=== PATIENT | female | born 1980 | race Caucasian/White ===

== ENCOUNTER 2017-03-31 10:32 | Emergency (ER) | payer MEDICAID ==
[~2017-03-31] VITALS: Ht 160 cm; Wt 55.1 kg
[~2017-03-31 10:32] MED LIST: IRON65 M2 PO; PRENATAL VITAMI1 T10 PO
[2017-03-31 10:54] VITALS: BP 114/69
--- NOTE | 2017-03-31 11:30 | NUR ---
Patient to bed 07.
--- NOTE | 2017-03-31 11:36 | NUR ---
Dr. Lovelace evaluating patient at bedside.
[2017-03-31] MEDS ORDERED: NACL 0.9% 1,000 ML IV SCH (11:37)
[2017-03-31] MEDS ORDERED: ONDANSETRON 4 MG/2 ML VIAL IVP ONE (11:40)
--- NOTE | 2017-03-31 12:09 | NUR ---
PATIENT PRESENTS TO ED WITH C/O FLANK PAIN RADIATING TO RIGHT LOWER ABDOMEN X4 DAYS WITH NAUSEA/VOMITING;DYSURIA, NO VAG BLEEDING;G4 P 2 A 1 ; 17WKS IUP FOLLOWED BY DR. ARGUELLO;HX-KIDNEY STONE;SKIN IS PINK/WARM/DRY; AAOX4 WITH EVEN AND STEADY GAIT; LUNGS CLEAR BL; HR EVEN AND REGULAR; PT DENIES ANY FEVER, CP, SOB, OR COUGH AT THIS TIME; PATIENT STATES PAIN OF 9/10 AT THIS TIME;PATIENT POSITIONED FOR COMFORT; HOB ELEVATED; BEDRAILS UP X2; BED DOWN. ALL MONITORS IN PLACED.
[2017-03-31] MEDS ORDERED: MORPHINE SULFATE 4 MG/ML SYR IVP ONE (13:00)
[2017-03-31] MEDS ORDERED: cefTRIAXone 1,000 MG VIAL ONE (13:12)
--- NOTE | 2017-03-31 13:32 | NUR ---
PT RESTING ONJ BED;NO ACUTE DISTRESS NOTED;WILL CONTINUE TO MONITOR PT.
--- NOTE | 2017-03-31 14:16 | NUR ---
Patient discharged with v/s stable. Written and verbal after care instructions given and explained. Patient alert, oriented and verbalized understanding of instructions. Ambulatory with steady gait. All questions addressed prior to discharge. ID band removed. Patient advised to follow up with PMD. Rx of TYLENOL AND NITROFURANTOIN given. Patient educated on indication of medication including possible reaction and side effects. Opportunity to ask questions provided and answered.
[2017-03-31 14:19] VITALS: BP 139/62
[2017-04-15] MEDS ORDERED: MEROPENEM1 GM IV (08:47)
[2017-04-15] MEDS ORDERED: PYRIDOXINE HCL50 M1 PO (16:36)
[2017-04-15] MEDS ORDERED: CULTURELLE10 Billion PO (16:36)
[2017-04-16] MEDS ORDERED: DICLEGIS 10 MG-1 TCP PO (08:29)
[2017-04-16] MEDS ORDERED: Q-PAP500 MG PO (10:52)
== END 2017-03-31 14:16 | disposition home or self-care (01) ==
LOC: MED 10:32
DX: O23.12 Infections of bladder in pregnancy, second trimester (principal); R10.2 Pelvic and perineal pain; Z3A.16 16 weeks gestation of pregnancy
CPT/HCPCS: 36415; 80053; 81001; 81025; 82150; 83690; 84702; 85025; 87086; 96361; 96365; 96375; 99284; J0696; J2270; J2405; J7030; J7060

== ENCOUNTER 2017-04-11 17:12 | Inpatient (IN) | payer MEDICAID ==
[~2017-04-11] VITALS: Ht 157.5 cm; Wt 55.3 kg
[~2017-04-11 17:12] MED LIST changes: -IRON65 M2 PO; +IRON65TA3 PO; +PREN-385 PO; -PRENATAL VITAMI1 T10 PO
[2017-04-11 17:23] VITALS: BP 103/61
[2017-04-11 18:02] LABS: BASOPHILS # (AUTO) 0.1 K/uL (0.00-0.22); BASOPHILS % (AUTO) 1.2 % (0.0-2.0); EOSINOPHILS % (AUTO) 0.7 % (0.0-4.0); HEMATOCRIT 31.5 % (36-48); HEMOGLOBIN 10.4 g/dL (12.0-16.0); LYMPHOCYTES # (AUTO) 1.5 K/uL (2.5-16.5); LYMPHOCYTES % (AUTO) 23.5 % (20.5-51.1); MEAN CORPUSCULAR HEMOGLOBIN 30 pg (27-31); MEAN CORPUSCULAR HGB CONC 33 g/dL (33-37); MEAN CORPUSCULAR VOLUME 91 fL (80-94); MONOCYTES # (AUTO) 0.4 K/uL (0.8-1.0); MONOCYTES % (AUTO) 6.4 % (1.7-9.3); NEUTROPHILS # (AUTO) 4.6 K/uL (1.8-7.7); NEUTROPHILS % (AUTO) 68.2 % (42.2-75.2); PLATELET COUNT (AUTO) 253 K/uL (140-450); RED BLOOD CELL COUNT(AUTO) 3.44 MIL/uL (4.20-5.40); RED CELL DISTRIBUTION WIDTH 15.4 % (11.6-13.7); WHITE BLOOD COUNT (AUTO) 6.6 K/uL (4.8-10.8)
[2017-04-11 18:12] LABS: ANION GAP 12.8 (8-16); CALCIUM 8.8 mg/dL (8.5-10.1); CARBON DIOXIDE 23.7 mmol/L (21-32); CREATININE 0.6 mg/dL (0.6-1.3); POTASSIUM 3.5 mmol/L (3.5-5.1)
[2017-04-11 18:18] LABS: ALBUMIN 3.1 g/dL (3.4-5.0); TOTAL BILIRUBIN 0.4 mg/dL (0.0-1.0); TOTAL PROTEIN, SERUM 7.2 g/dL (6.4-8.2)
[2017-04-11 18:22] LABS: APPEARANCE,URINE HAZY (CLEAR); BILIRUBIN,URINE NEGATIVE (NEGATIVE); BLOOD, URINE 3+ (NEGATIVE); LEUKOCYTE ESTERASE ,URINE 3+ (NEGATIVE); NITRITE, URINE NEGATIVE (NEGATIVE); PH,URINE 7.5 (5.0-9.0); PROTEIN,URINE 1+ (NEGATIVE); UGLUCOSE NEGATIVE (NEGATIVE); UROBILINOGEN,URINE 0.2 EU/dL (0.2 - 1)
[2017-04-11 18:26] LABS: COLOR,URINE YELLOW (YELLOW)
[2017-04-11 18:28] LABS: BACTERIA,URINE 2+ /HPF (None Seen); WBC,URINE 60-80 /HPF (0-5)
--- NOTE | 2017-04-11 18:40 | NUR ---
PT TAKEN TO BED 3
--- NOTE | 2017-04-11 18:45 | NUR ---
PATIENT PRESENTS TO ED WITH SUPRAPUBIC PAIN RADIATING TO LEFT FLANK . PT STATES WAS SEEN AND TREATED FOR UTI X2 WK AGO WITH MILD NAUSEA SKIN IS PINK/WARM/DRY; AAOX4 WITH EVEN AND STEADY GAIT; LUNGS CLEAR BL; HR EVEN AND REGULAR; PT DENIES ANY FEVER, CP, SOB, OR COUGH AT THIS TIME; PATIENT STATES PAIN OF 7/10 AT THIS TIME; VSS; PATIENT POSITIONED FOR COMFORT; HOB ELEVATED; BEDRAILS UP X2; BED DOWN. ER MD MADE AWARE OF PT STATUS.
--- NOTE | 2017-04-11 18:49 | NUR ---
Dr. Cortez evaluating patient at bedside.
[2017-04-11] MEDS ORDERED: cefTRIAXone 1,000 MG VIAL ONE (18:59)
[2017-04-11] MEDS ORDERED: NACL 0.9% 1,000 ML IV ONE (19:15)
[2017-04-11] MEDS ORDERED: ACETAMINOPHEN 325 MG TAB PO PRN (19:45)
--- NOTE | 2017-04-11 19:57 | NUR ---
Patient will be admitted to care of DR JON/DR Breana OLSON. Admited to TELE 106B. Will go to room 106B. Belongings list completed. Report to KELVIN ROSS
--- NOTE | 2017-04-11 20:15 | NUR ---
Admitted from E. with chief complaint of ABDOMINAL PAIN. A 36 y/o, Female, Appropriate. ALERT AWAKE ORIENTED X4. INITIAL ASSESSMENT DONE. NO S/S OF RESPIRATORY DISTRESS OR SOB NOTED. C/O ABDOMINAL PAIN SCALING 10/10. WILL GIVE PRN MEDICATION FOR ABDOMINAL PAIN ORDERED. PT IS 18 WEEK (=4, PARA=2, =1). SKIN IS INTACT CLEAN DRY AND WARM TO TOUCH. PLAN OF CARE REVIEWED TO PT AND FAMILY AT BEDSIDE AND VERBALIZED UNDERSTANDING. oriented to call light, bed, phone,television, bathroom, smoking policy, visiting hours, procedures, ID bracelet on. Belongings list checked. CALL LIGHT WITHIN REACH. WILL CONTINUE TO MONITOR.
[2017-04-11] MEDS: NACL 0.9% 1,000 ML IV SCH (20:19)
[2017-04-11 20:35] LABS: FREE T4 (FREE THYROXINE) 0.82 ng/dL (0.76-1.46); THYROID STIMULATING HORMONE 1.46 uIU/mL (0.34-3.76)
[2017-04-11] MEDS ORDERED: ACETAMINOPHEN EXTRA STRENGTH 500 MG TAB PO PRN (21:45)
--- NOTE | 2017-04-11 23:40 | NUR ---
DR. Velvet OLSON CAME TO SEE PT AND NOTIFIED THAT PT IS HAVING SEVERE ABDOMINAL PAIN AND TYLENOL PO IS NOT EFFECTIVE AND NEW ORDERS WERE GIVEN (PLS. SEE CPOE). NEW ORDERS NOTED AND CARRIED OUT. WILL CONTINUE TO MONITOR.
--- NOTE | 2017-04-11 23:55 | NUR ---
CALLED L&D AND SPOKE TO IZAIAH AND NOTIFIED THAT THERE'S AN ORDER TO CHECK PATIENT'S FATAL HEART TONE TWICE A DAY AND VERBALIZED UNDERSTANDING. WILL CONTINUE TO MONITOR
[2017-04-12] VITALS: BP 115/67
--- NOTE | 2017-04-12 00:15 | NUR ---
QIB=[id number] CHECKED BY IZAIAH ROSS FROM L&D AT BEDSIDE AND PT TOLERATED WELL. WILL CONTINUE TO MONITOR.
[2017-04-12] MEDS: MORPHINE SULFATE 2 MG/ML SYR IVP PRN ×5 (00:20→20:16)
--- NOTE | 2017-04-12 00:50 | NUR ---
PT IS SLEEPING RIGHT NOW BUT EASILY AROUSABLE. NO S/S OF ANY DISCOMFORT AT THIS TIME. ALL NEEDS ARE ATTENDED. CALL LIGHT WITHIN REACH. WILL CONTINUE TO MONITOR.
[2017-04-12 04:00] VITALS: BP 116/68
--- NOTE | 2017-04-12 05:45 | NUR ---
AM CARE RENDERED. BED LINEN CHANGED. INSTRUCTED PT TO REPOSITION. KEPT CLEAN AND DRY. CALL LIGHT WITHIN REACH. WILL CONTINUE TO MONITOR.
--- NOTE | 2017-04-12 07:20 | NUR ---
RECEIVED PATIENT REPORT AT BEDSIDE. PATIENT AWAKE, ALERT, ORIENTED AND AMBULATORY. NO S/S OF DISTRESS NOTED. PATIENT C/O OF 10/10 LOWER ABD PAIN. WILL MEDICATE. IV LINE NOTED TO THE RIGHT FOREARM WITH IVF INFUSING WELL. PATIENT ON TELE MONITORING. BED LOWERED WITH CALL LIGHT WITHIN REACH. WILL CONTINUE TO MONITOR
--- NOTE | 2017-04-12 07:21 | NUR ---
PT HAS NO S/S OF ANY DISCOMFORT. PLAN OF CARE ENDORSED TO BRENDA ROSS AT BEDSIDE FOR CONTINUITY OF CARE.
[2017-04-12 08:00] VITALS: BP 109/59
[2017-04-12] MEDS: NACL 0.9% 1,000 ML IV SCH ×2 (08:15→12:45)
[2017-04-12] MEDS: LACTOBACILLUS RHAMNOSUS GG 1 EACH CAP PO SCH (08:21)
--- NOTE | 2017-04-12 08:48 | NUR ---
PATIENT HAS BEEN SCREENED AND CATEGORIZED HIGH NUTRITION RISK. PATIENT WILL BE SEEN WITHIN 1-2 DAYS OF ADMISSION. 04/12/17-04/13/[address]
[2017-04-12] MEDS: PYRIDOXINE 50 MG TAB PO SCH (10:03)
[2017-04-12 10:17] LABS: T4 (THYROXINE) 6.9 ug/dL (4.5 - 12.0)
--- NOTE | 2017-04-12 10:39 | NUR ---
PATIENT ASLEEP IN BED. NO S/S OF DISTRESS NOTED
--- NOTE | 2017-04-12 11:43 | NUR ---
04/12/17 RD INITIAL ASSESSMENT COMPLETED PLEASE REFER TO NUTRITION ASSESSMENT UNDER CARE ACTIVITY FOR ESTIMATED NUTRITIONAL NEEDS. 1. CONTINUE REGULAR DIET 2. ADD HEALTH SHAKE TID 3. RD TO FOLLOW-UP 2-3 DAYS; HIGH RISK VY CORTES RD
[2017-04-12 12:00] VITALS: BP 129/73
--- NOTE | 2017-04-12 12:48 | NUR ---
PATIENT SEEN BY L&D NURSES. HR 144
[2017-04-12 16:00] VITALS: BP 122/65
[2017-04-12] MEDS: diphenhydrAMINE 50 MG/ML VIAL IVP PRN ×2 (16:30→22:54)
--- NOTE | 2017-04-12 19:16 | NUR ---
PATIENT REPORT GIVEN AT BEDSIDE. PATIENT ENDORSED IN STABLE CONDITION
--- NOTE | 2017-04-12 19:17 | NUR ---
RECEIVED REPORT, ASSUMED CARE.PT AAOX4. RESPIRATION EVEN AND UNLABORED,NO SOB,NO C/O PAIN AT THIS TIME. NO S/S OF RESPIRATORY DISTRESS AT THIS TIME. IV ACCESS TO RT HAND, INTACT AND PATENT, NO S/S OF INFILTRATION. INFUSING NS @ 80ML/HR. DISCUSSED PLAN OF CARE. EDUCATION PROVIDED RE: SAFETY AND FALL PREVENTION. PT VERBALIZED UNDERSTANDING. CALL LIGHT PLACED WITHIN EASY REACH. WILL CONTINUE TO MONITOR.
[2017-04-12 20:00] VITALS: BP 132/67
--- NOTE | 2017-04-12 21:30 | NUR ---
KATERINA RN FORM L&D CAME AND SEEN THE PT. PER KATERINA, FHR 150 BPM.
--- NOTE | 2017-04-12 22:54 | NUR ---
PT C/O NAUSEA AND VOMITING. ADMINISTERED BENADRYL 25MG IV PUSH. WILL CONTINUE TO MONITOR AND REASSESS FOR EFFECTIVENESS.
--- NOTE | 2017-04-12 23:54 | NUR ---
PT SLEEPING AT THIS TIME, NO APPARENT DISTRESS. NO EPISODE OF VOMITING AT THIS TIME. WILL CONTINUE TO MONITOR.
[2017-04-13] VITALS: BP 121/67
--- NOTE | 2017-04-13 00:21 | NUR ---
PT SLEEPING AT THIS TIME WITH REGULAR BREATHING PATTERN. NO S/S OF RESPIRATORY DISTRESS. NO FACIAL GRIMACING INDICATING PAIN. WILL CONTINUE TO MONITOR.
[2017-04-13] MEDS: NACL 0.9% 1,000 ML IV SCH ×2 (00:30→21:45)
[2017-04-13] MEDS: MORPHINE SULFATE 2 MG/ML SYR IVP PRN ×2 (02:15→11:42)
[2017-04-13 04:00] VITALS: BP 108/52
--- NOTE | 2017-04-13 04:22 | NUR ---
PT AWAKE, VERBALLY RESPONSIVE WITH REGULAR BREATHING PATTERN. DENIES PAIN AT THIS TIME. NO ACUTE CHANGE IN CONDITION. WILL CONTINUE TO MONITOR.
[2017-04-13 06:43] LABS: ANION GAP 10.7 (8-16); CALCIUM 8.2 mg/dL (8.5-10.1); CARBON DIOXIDE 24.3 mmol/L (21-32); CREATININE 0.5 mg/dL (0.6-1.3)
[2017-04-13 06:46] LABS: MAGNESIUM 1.4 mg/dL (1.8-2.4); PHOSPHORUS 2.6 mg/dL (2.5-4.9)
[2017-04-13 06:50] LABS: BASOPHILS # (AUTO) 0.1 K/uL (0.00-0.22); BASOPHILS % (AUTO) 1.4 % (0.0-2.0); EOSINOPHILS # (AUTO) 0.1 K/uL (0-0.4); HEMATOCRIT 26.8 % (36-48); HEMOGLOBIN 9.2 g/dL (12.0-16.0); LYMPHOCYTES # (AUTO) 1.6 K/uL (2.5-16.5); LYMPHOCYTES % (AUTO) 31.3 % (20.5-51.1); MEAN CORPUSCULAR HEMOGLOBIN 31 pg (27-31); MEAN CORPUSCULAR HGB CONC 34 g/dL (33-37); MEAN CORPUSCULAR VOLUME 91 fL (80-94); MONOCYTES # (AUTO) 0.4 K/uL (0.8-1.0); MONOCYTES % (AUTO) 8.8 % (1.7-9.3); NEUTROPHILS # (AUTO) 2.8 K/uL (1.8-7.7); NEUTROPHILS % (AUTO) 56.5 % (42.2-75.2); PLATELET COUNT (AUTO) 198 K/uL (140-450); RED BLOOD CELL COUNT(AUTO) 2.95 MIL/uL (4.20-5.40); RED CELL DISTRIBUTION WIDTH 14.9 % (11.6-13.7)
--- NOTE | 2017-04-13 07:25 | NUR ---
PT AWAKE AND VERBALLY RESPONSIVE. DENIES PAIN AT THIS TIME. NO S/S OF RESPIRATORY DISTRESS. ENDORSED TO NEXT SHIFT FOR CONTINUITY OF CARE. PT IN STABLE CONDITION.
--- NOTE | 2017-04-13 07:26 | NUR ---
RECEIVED REPORT FROM THE CARE ASST NURSE AT BEDSIDE FOR CONTINUITY OF CARE. PT IS AWAKE AND ORIENTED. SHE DOES C/O SOME PAIN BUT REFUSED MEDS. PT HAS IV ON R HAND 20G. PT IS 18 WEEKS . HER MAG LEVEL IS 1.4 TODAY. WILL NOTIFY MD. SHE IS UNABLE TO EAT HER BREAKFAST, NAUSEATED. SHE'S BEEN GETTING BENADRYL AND IT HAS BEEN HELPING. WILL MEDICATE. WILL BE BACK TO ADMINISTER MEDS.
[2017-04-13 08:00] VITALS: BP 100/60
[2017-04-13] MEDS: PYRIDOXINE 50 MG TAB PO SCH (08:17)
[2017-04-13] MEDS: diphenhydrAMINE 50 MG/ML VIAL IVP PRN ×3 (08:17→23:28)
[2017-04-13] MEDS: LACTOBACILLUS RHAMNOSUS GG 1 EACH CAP PO SCH (08:17)
--- NOTE | 2017-04-13 08:20 | NUR ---
ADMINISTERED MORNING MEDS. PT TOLERATED WELL. WILL CONTINUE TO MONITOR PT.
[2017-04-13] MEDS ORDERED: MAG SULF 2000 MG/WATER PREMIX 100 ML IV SCH (09:00)
--- NOTE | 2017-04-13 09:22 | NUR ---
ADMINISTERED MAG RIDER 11/05. EDUCATED PT ABOUT POSSIBLE SIDE EFFECTS OF MAG. PT VERBALIZED UNDERSTANDING. WILL CONTINUE TO MONITOR PT.
--- NOTE | 2017-04-13 10:50 | NUR ---
PT RESTING COMFORTABLY. ASKED PT ABOUT PAIN. SHE SAID IT'S THERE BUT WOULD LIKE TO HOLD OFF ON THE PAIN MED. I EDUCATED PT ABOUT NOT WAITING UNTIL 10/10 BEFORE GETTING THE PAIN MED. PT VERBALIZED UNDERSTANDING. WILL CONTINUE TO MONITOR PT.
[2017-04-13 12:00] VITALS: BP 92/63
--- NOTE | 2017-04-13 12:35 | NUR ---
HEART TONE DONE, 140 BPM.
--- NOTE | 2017-04-13 13:39 | NUR ---
LAB CALLED WITH CRITICAL RESULTS. URINE- ECOLI, MDRO, ESVL. NOTIFIED DR JACINTO. HE WILL PUT IN ORDERS.
[2017-04-13] MEDS ORDERED: NITROFURANTOIN 100 MG CAP PO SCH (13:50)
--- NOTE | 2017-04-13 15:30 | NUR ---
RESTING COMFORTABLY. DENIES PAIN AT THIS TIME. DR JACINTO TOLD HER THAT SHE MAY BE STAYING ANOTHER DAY D/T A CONSULT. SHE NOTIFIED HER FAMILY. WILL CONTINUE TO MONITOR PT.
--- NOTE | 2017-04-13 15:42 | NUR ---
CHECKED ON PT. PT SLEEPING. MOM AT BEDSIDE. NO SIGNS OF DISTRESS. WILL CONTINUE TO MONITOR PT. Addendum: 04/13/17 at 1546 by Sherie Bowles RN WRONG PT.
[2017-04-13 16:00] VITALS: BP 90/55
--- NOTE | 2017-04-13 17:22 | NUR ---
ADMINISTERED BENADRYL FOR PT'S NAUSEA. PT TOLERATED WELL. DINNER TRAY AT BEDSIDE. WILL EAT LATER. WILL CONTINUE TO MONITOR PT.
--- NOTE | 2017-04-13 19:15 | NUR ---
ENDORSED PT TO THE WOODS BOSS NURSE AT BEDSIDE FOR CONTINUITY OF CARE. PT IS STABLE WITH FAMILY AT BEDSIDE.
--- NOTE | 2017-04-13 19:16 | NUR ---
RECEIVED REPORT FROM DAY RN FOR CONTINUITY OF CARE. PATIENT IS A&OX4, DISCUSSED PLAN OF CARE WITH PATIENT VERBALIZED UNDERSTANDING. SHIFT ASSESSMENT DONE, VS TAKEN, STABLE AT THIS TIME. NO S/S OF RESPIRATORY DISTRESS NOTED ON ROOM AIR. PATIENT DENIES PAIN AT THIS TIME. IV TO RT HAND PATENT AND INFUSING FLUIDS WELL. PATIENT IS , WILL FOLLOW UP WITH HEART TONES ORDERED. SAFETY/CONTACT PRECAUTIONS ENFORCED. CALL LIGHT PLACED WITHIN REACH. WILL CONTINUE TO MONITOR
[2017-04-13 20:00] VITALS: BP 130/80
[2017-04-13] MEDS: MEROPENEM 1,000 MG in NACL 0.9% 100 ML IV SCH (20:53)
[2017-04-13] MEDS ORDERED: MEROPENEM 500 MG in NACL 0.9% 50 ML IV SCH (21:00)
[2017-04-13] MEDS: HYDROcodone/APAP 5/325 MG 1 TAB TAB PO PRN (21:08)
--- NOTE | 2017-04-13 21:27 | NUR ---
DR. ADAN IN TO SEE PATIENT, PER PATIENT NEEDS TO RECEIVE IV ANTIBIOTICS FOR UP TO 2 WEEKS. NO P.O. MEDICATION AVAILABLE. PATIENT VERBALIZED UNDERSTANDING.
--- NOTE | 2017-04-13 23:45 | NUR ---
VITAL SIGNS STABLE AT THIS TIME. HEART TONE TAKEN BY L&D RN: 138-142. PATIENT C/O ITCHING, ADMINISTERED BENADRYL PER MD ORDER. CALL LIGHT WITHIN REACH, WILL CONTINUE TO MONITOR.
[2017-04-14] VITALS: BP 102/54
--- NOTE | 2017-04-14 02:00 | NUR ---
PATIENT RESTING IN BED WATCHING TV, ALL NEEDS MET. CALL LIGHT WITHIN REACH.
[2017-04-14] MEDS: HYDROcodone/APAP 5/325 MG 1 TAB TAB PO PRN ×3 (02:55→21:39)
[2017-04-14 04:00] VITALS: BP 103/61
--- NOTE | 2017-04-14 04:32 | NUR ---
VS TAKEN, STABLE. NO S/S OF RESPIRATORY DISTRESS NOTED. SAFETY MEASURES ENFORCED, CALL LIGHT WITHIN REACH.
[2017-04-14] MEDS: MEROPENEM 1,000 MG in NACL 0.9% 100 ML IV SCH ×3 (04:52→20:47)
--- NOTE | 2017-04-14 05:59 | NUR ---
PATIENT RESTING IN BED, NO S/S OF DISTRESS OR DISCOMFORT NOTED. CALL LIGHT WITHIN REACH.
[2017-04-14 06:48] LABS: BASOPHILS % (AUTO) 0.7 % (0.0-2.0); EOSINOPHILS # (AUTO) 0.2 K/uL (0-0.4); EOSINOPHILS % (AUTO) 2.6 % (0.0-4.0); HEMATOCRIT 28.8 % (36-48); HEMOGLOBIN 9.6 g/dL (12.0-16.0); LYMPHOCYTES # (AUTO) 1.4 K/uL (2.5-16.5); LYMPHOCYTES % (AUTO) 22.8 % (20.5-51.1); MEAN CORPUSCULAR HEMOGLOBIN 30 pg (27-31); MEAN CORPUSCULAR HGB CONC 33 g/dL (33-37); MEAN CORPUSCULAR VOLUME 92 fL (80-94); MONOCYTES # (AUTO) 0.5 K/uL (0.8-1.0); MONOCYTES % (AUTO) 7.6 % (1.7-9.3); NEUTROPHILS # (AUTO) 4.2 K/uL (1.8-7.7); NEUTROPHILS % (AUTO) 66.3 % (42.2-75.2); PLATELET COUNT (AUTO) 218 K/uL (140-450); RED BLOOD CELL COUNT(AUTO) 3.15 MIL/uL (4.20-5.40); WHITE BLOOD COUNT (AUTO) 6.4 K/uL (4.8-10.8)
[2017-04-14 06:49] LABS: ANION GAP 10.1 (8-16); CALCIUM 7.9 mg/dL (8.5-10.1); CARBON DIOXIDE 23.4 mmol/L (21-32); CREATININE 0.6 mg/dL (0.6-1.3); POTASSIUM 3.5 mmol/L (3.5-5.1)
[2017-04-14 06:55] LABS: MAGNESIUM 1.8 mg/dL (1.8-2.4); PHOSPHORUS 2.8 mg/dL (2.5-4.9)
--- NOTE | 2017-04-14 07:27 | NUR ---
ENDORSED PATIENT TO DAY RN FOR CONTINUITY OF CARE, PATIENT IS IN STABLE CONDITION.
--- NOTE | 2017-04-14 07:28 | NUR ---
RECEIVED REPORT FROM THE LOLLYPOP MACHINE OPERATOR NURSE AT BEDSIDE FOR CONTINUITY OF CARE. PT IS AWAKE AND ALERT. I REINTRODUCED MYSELF AND UPDATED THE BOARD. SHE IS AWARE THAT SHE IS ON A NEW ABX AND THAT DR. GONZALES STATED THAT SHE NEEDS IV ABX FOR 14 DAYS. SHE COMPLAINS OF NAUSEA AND SOME ITCHINESS. WILL BRING HER BENADRYL WITH HER MORNING MEDS.
[2017-04-14 08:00] VITALS: BP 98/71
[2017-04-14] MEDS: LACTOBACILLUS RHAMNOSUS GG 1 EACH CAP PO SCH (08:14)
[2017-04-14] MEDS: diphenhydrAMINE 50 MG/ML VIAL IVP PRN ×3 (08:14→21:39)
[2017-04-14] MEDS: PYRIDOXINE 50 MG TAB PO SCH (08:14)
--- NOTE | 2017-04-14 08:15 | NUR ---
ADMINISTERED MORNING MEDS, INCLUDING BENADRYL. PT TOLERATED WELL. WILL CONTINUE TO MONITOR PT.
--- NOTE | 2017-04-14 09:30 | NUR ---
PICKED UP PT BREAKFAST TRAY. ATE 90%.
--- NOTE | 2017-04-14 09:34 | NUR ---
COMPLAINED OF PAIN. ADMINISTERED NORCO REQUESTED. PT TOLERATED WELL. WILL CONTINUE TO MONITOR PT.
[2017-04-14 12:00] VITALS: BP 109/68
--- NOTE | 2017-04-14 12:16 | NUR ---
PT WOULD LIKE TO TAKE A SHOWER. WAITING ON DR JACINTO TO GIVE ORDERS. PT EATING LUNCH. OB NURSE HERE. HR IS 140. WANTED SOME ICE IN HER WATER. WILL CONTINUE TO MONITOR PT.
--- NOTE | 2017-04-14 12:55 | NUR ---
PT TAKING SHOWER. WRAPPED PT ARM WITH PLASTIC TO KEEK IV DRY. SUPPLIED PT WITH TOWELS AND SOAP. CHANGED ALL LINENS ON BED. WILL CONTINUE TO MONITOR PT.
[2017-04-14] MEDS: NACL 0.9% 1,000 ML IV SCH ×2 (13:08→21:53)
--- NOTE | 2017-04-14 14:05 | NUR ---
PT IS RESTING AFTER HER SHOWER. SPOUSE AT BEDSIDE. SOME NAUSEA. WOULD LIKE HER BENADRYL. WILL ADMINISTER.
[2017-04-14 16:00] VITALS: BP 107/65
--- NOTE | 2017-04-14 17:00 | NUR ---
FAMILY CAME FOR A VISIT. PT IS VISITING WITH THEM. NO SIGNS OF DISTRESS. DENIES PAIN OR NAUSEA. WILL CONTINUE TO MONITOR PT.
--- NOTE | 2017-04-14 19:20 | NUR ---
ENDORSED PT TO THE NIGHTSHIFT NURSE AT BEDSIDE FOR CONTINUITY OF CARE. PT IS IN STABLE CONDITION.
--- NOTE | 2017-04-14 19:21 | NUR ---
RECEIVED REPORT FROM DAY RN FOR CONTINUITY OF CARE. PATIENT IS A&OX4, DISCUSSED PLAN OF CARE WITH PATIENT AND FAMILY MEMBER AT BEDSIDE VERBALIZED UNDERSTANDING. SHIFT ASSESSMENT DONE, VS TAKEN, STABLE. NO S/S OF RESPIRATORY DISTRESS NOTED ON ROOM AIR. PATIENT DENIES PAIN AT THIS TIME. IV TO RT HAND PATENT AND INFUSING FLUIDS WELL. SAFETY/CONTACT PRECAUTIONS ENFORCED. CALL LIGHT PLACED WITHIN REACH. WILL CONTINUE TO MONITOR
[2017-04-14 20:00] VITALS: BP 104/68
--- NOTE | 2017-04-14 20:37 | NUR ---
DUE ANTIBIOTICS ADMINISTERED, TOLERATED WELL. EDUCATED PATIENT ON USE OF CONTACT PRECAUTIONS FOR VISITORS, VERBALIZED UNDERSTANDING. CALL LIGHT WITHIN REACH. WILL CONTINUE TO MONITOR.
--- NOTE | 2017-04-14 21:39 | NUR ---
HEART RATE 137-142 PER L&D NURSE. PATIENT C/O PAIN AND NAUSEA, MEDICATED PER MD ORDER. VITAL SIGNS STABLE. WILL CONTINUE TO MONITOR.
[2017-04-15] VITALS: BP 97/56
--- NOTE | 2017-04-15 00:25 | NUR ---
VITAL SIGNS STABLE. ALL NEEDS MET AT THIS TIME. PATIENT RESTING IN BED NO S/S OF DISTRESS OR DISCOMFORT NOTED. WILL CONTINUE TO MONITOR.
--- NOTE | 2017-04-15 02:20 | NUR ---
PATIENT SLEEPING AT THIS TIME, NO S/S OF DISTRESS OR DISCOMFORT NOTED. CALL LIGHT WITHIN REACH.
--- NOTE | 2017-04-15 04:07 | NUR ---
PATIENT RESTING IN BED, NO S/S OF DISTRESS OR DISCOMFORT NOTED. CALL LIGHT WITHIN REACH.
[2017-04-15] MEDS: MEROPENEM 1,000 MG in NACL 0.9% 100 ML IV SCH ×3 (04:51→22:19)
--- NOTE | 2017-04-15 06:00 | NUR ---
PATIENT IS SLEEPING AT THIS TIME, NO S/S OF DISTRESS OR DISCOMFORT NOTED. CALL LIGHT WITHIN REACH.
[2017-04-15] MEDS: diphenhydrAMINE 50 MG/ML VIAL IVP PRN ×3 (07:05→19:50)
[2017-04-15] MEDS: HYDROcodone/APAP 5/325 MG 1 TAB TAB PO PRN ×3 (07:05→21:50)
--- NOTE | 2017-04-15 07:20 | NUR ---
ENDORSED PATIENT TO DAY RN FOR CONTINUITY OF CARE, PATIENT IS IN STABLE CONDITION.
--- NOTE | 2017-04-15 07:21 | NUR ---
RECEIVED REPORT FROM VARIETY PERFORMER NURSE AT BEDSIDE. PT IS ALERT AWAKE AND ORIENTED. UPDATED THE BOARD AND INTRODUCED MYSELF. PT DENIES PAIN OR DISCOMFORT AT THIS TIME. IV ON R HAND 20 G RUNNING @ 80ML/HR. WILL CALL L&D NURSE TO CHECK ON FETUS. CALL LIGHT WITHIN REACH. WILL CONTINUE TO MONITOR.
[2017-04-15 08:00] VITALS: BP 95/59
[2017-04-15] MEDS: PYRIDOXINE 50 MG TAB PO SCH (08:27)
[2017-04-15] MEDS: LACTOBACILLUS RHAMNOSUS GG 1 EACH CAP PO SCH (08:27)
[2017-04-15] MEDS ORDERED: MERO1PDS2 IV (08:47)
--- NOTE | 2017-04-15 08:50 | NUR ---
SPOKE TO DR REGARDING PT HAVING NO BOWEL MOVEMENT FOR [address] WILL PUT IN ORDER.
[2017-04-15 08:55] LABS: BASOPHILS # (AUTO) 0.1 K/uL (0.00-0.22); BASOPHILS % (AUTO) 0.7 % (0.0-2.0); EOSINOPHILS # (AUTO) 0.1 K/uL (0-0.4); EOSINOPHILS % (AUTO) 1.8 % (0.0-4.0); HEMATOCRIT 31.2 % (36-48); HEMOGLOBIN 10.1 g/dL (12.0-16.0); LYMPHOCYTES # (AUTO) 1.5 K/uL (2.5-16.5); MEAN CORPUSCULAR HEMOGLOBIN 30 pg (27-31); MEAN CORPUSCULAR HGB CONC 33 g/dL (33-37); MEAN CORPUSCULAR VOLUME 93 fL (80-94); MONOCYTES # (AUTO) 0.5 K/uL (0.8-1.0); MONOCYTES % (AUTO) 5.9 % (1.7-9.3); NEUTROPHILS % (AUTO) 73.6 % (42.2-75.2); PLATELET COUNT (AUTO) 246 K/uL (140-450); RED BLOOD CELL COUNT(AUTO) 3.35 MIL/uL (4.20-5.40); RED CELL DISTRIBUTION WIDTH 15.3 % (11.6-13.7); WHITE BLOOD COUNT (AUTO) 8.2 K/uL (4.8-10.8)
[2017-04-15 09:22] LABS: ANION GAP 11.7 (8-16); CALCIUM 8.5 mg/dL (8.5-10.1); CARBON DIOXIDE 24.3 mmol/L (21-32); CREATININE 0.6 mg/dL (0.6-1.3)
[2017-04-15 09:26] LABS: MAGNESIUM 1.6 mg/dL (1.8-2.4); PHOSPHORUS 2.5 mg/dL (2.5-4.9)
[2017-04-15 09:29] VITALS: BP 95/59
--- NOTE | 2017-04-15 10:05 | NUR ---
UPDATED PT ON PLAN OF CARE. PT VERBALIZED UNDERSTANDING. L&D NURSE CHECKED HEART RATE, 136.
[2017-04-15] MEDS ORDERED: MAG SULF 2000 MG/WATER PREMIX 50 ML IV SCH (11:00)
[2017-04-15] MEDS: NACL 0.9% 1,000 ML IV SCH ×2 (11:15→22:42)
--- NOTE | 2017-04-15 11:41 | NUR ---
04/15/17 RD FOLLOW-UP ASSESSMENT COMPLETED PLEASE REFER TO NUTRITION ASSESSMENT UNDER CARE ACTIVITY FOR ESTIMATED NUTRITIONAL NEEDS. 1. CONTINUE REGULAR DIET 2. D/C HEALTH SHAKE TID 3. RD TO FOLLOW-UP 3-5 DAYS; MODERATE RISK VY CORTES, VICENTE
--- NOTE | 2017-04-15 12:06 | NUR ---
SS NOTE: PER MISSY FROM [facility] ([phone]), RESTRICTED MEDI-KRYSTAL COVERS 10 DAYS AND THE COST FOR THE ADDITONAL TWO DAYS OF IV MEDICATION, SUPPLIES AND DELIVERY IS $200. I SPOKE WITH PT REGARDING THE ABOVE INFORMATION. SHE STATED THAT SHE IS IN AGREEMENT WITH PAYING FOR HER MEDICATION. I ALSO INFORMED HER THAT WE ARE WORKING ON A HOME HEALTH THAT IS WILLING TO TEACH HER HOW TO ADMINISTER HER MEDICATION, PT VERBALIZED UNDERSTANDING AND REPORTED THAT HER NEIGHBOR CAN ALSO LEARN WITH HER IF SHE NEEDS ASSISTANCE. Addendum: 04/16/17 at 0949 by Heidi Liao SS PT INFORMED ME THAT HER HOME WILL BE GETTING FUMIGATED SO SHE WILL BE STAYING WITH HER SISTER ([id number] [place] [id number]).
--- NOTE | 2017-04-15 12:35 | NUR ---
SS NOTE: PER MISSY FROM [facility] ([phone]), HE SPOKE WITH PT AND THEY WILL DELIVER PT'S MEDICATIONS AFTER 1700 TODAY. PER LINDA FROM [address], THEIR [place] NURSE [place] SO THEY ARE UNABLE TO ACCEPT PT.
--- NOTE | 2017-04-15 13:30 | NUR ---
ADMINISTERED MEDS FOR PAIN AND NAUSEA. PT TOLERATED WELL. WILL CONTINUE TO MONITOR.
--- NOTE | 2017-04-15 15:02 | NUR ---
SS NOTE: PER CARY FROM [facility], MEDI-KRYSTAL RESTRICTED DOES NOT COVER HOME HEALTH SERVICES AND THEY ARE UNABLE TO ACCEPT PT PER CONCHIS FROM [facility], THEY DO NOT ACCEPT MEDI-KRYSTAL RESTRICTED I SPOKE WITH PT REGARDING THE CHALLENGES OF OBTAINING HOME HEALTH NURSING DUE TO HER INSURANCE. I INFORMED HER THAT THE HOSPITAL CAN PROVIDE TEACHING FOR PT TODAY AND TOMORROW AFTER SHE RECEIVES HER PICC LINE IF HOME HEALTH NURSING IS NOT AVAILABLE. SHE STATED THAT SHE IS IN AGREEMENT WITH THAT PLAN.
--- NOTE | 2017-04-15 15:35 | NUR ---
PT SIGNED CONSENT FOR PICC LINE. VERBALIZED UNDERSTANDING.
--- NOTE | 2017-04-15 15:40 | NUR ---
PROVIDED PT PRUNE JUICE FOR CONSTIPATION.
--- NOTE | 2017-04-15 15:56 | NUR ---
SS NOTE: PER JENN FROM [facility] ([phone]), THEY ARE ABLE TO DO ONE PRO-NIK VISIT TO TEACH PT AT HOME. I SPOKE WITH MISSY FROM [facility] AND MADE HIM AWARE OF THE ABOVE INFORMATION. HE STATED THAT HE WILL CONTACT PT TO SET UP A DELIVERY TIME. I SPOKE WITH PT AND MADE HER AWARE OF THE ABOVE INFORMATION. PT STATED THAT SHE IS IN AGREEMENT WITH THE D/C PLAN.
[2017-04-15 16:00] VITALS: BP 106/72
--- NOTE | 2017-04-15 16:00 | NUR ---
JALEN BOLES. PT HAS NO COMPLAINTS AT THIS TIME. FRIEND VISITING AT BEDSIDE. CALL LIGHT WITHIN REACH.
[2017-04-15] MEDS ORDERED: PYRI50TA25 PO (16:36)
[2017-04-15] MEDS ORDERED: LACT10CA PO (16:36)
--- NOTE | 2017-04-15 16:40 | NUR ---
OBTAINED PT'S PREFERRED PHARMACY FOR
[2017-04-15 17:39] LABS: PARTIAL THROMBOPLASTIN TIME 23.4 secs (22-35.6); PROTHROMBIN TIME 9.7 secs (10.8-13.4)
--- NOTE | 2017-04-15 18:00 | NUR ---
FAMILY VISITING AT BEDSIDE. PT HAS NO COMPLAINTS AT THIS TIME. WILL CONTINUE TO MONITOR.
--- NOTE | 2017-04-15 19:10 | NUR ---
ENDORSED CARE OF PT TO HEALTH SCREENER NURSE. PT IN STABLE CONDITION.
--- NOTE | 2017-04-15 19:22 | NUR ---
RECEIVED REPORT FROM DAY RN FOR CONTINUITY OF CARE. PATIENT IS A&OX4, DISCUSSED PLAN OF CARE WITH PATIENT AND FAMILY MEMBER AT BEDSIDE VERBALIZED UNDERSTANDING. SHIFT ASSESSMENT DONE, VS TAKEN, STABLE AT THIS TIME. NO S/S OF RESPIRATORY DISTRESS NOTED ON ROOM AIR. PATIENT DENIES PAIN AT THIS TIME. IV TO RT HAND 20 GAUGE PATENT AND INFUSING FLUIDS WELL. SAFETY/CONTACT PRECAUTIONS ENFORCED. CALL LIGHT PLACED WITHIN REACH. WILL CONTINUE TO MONITOR. WILL FOLLOW UP WITH PICC LINE NURSE REGARDING INSERTION TIME.
--- NOTE | 2017-04-15 19:50 | NUR ---
PT C/O NAUSEA AND ITCHING, MEDICATED PER MD ORDER. CALL LIGHT WITHIN REACH.
--- NOTE | 2017-04-15 20:00 | NUR ---
INFORMED VIDEO RENTAL CLERK THAT PICC LINE NURSE WAS SUPPOSED TO BE HERE AT 6 AND WAS STILL NOT HERE. PER VIDEO RENTAL CLERK WILL LEAVE A MESSAGE WITH PICC LINE NURSE.
--- NOTE | 2017-04-15 22:00 | NUR ---
SPOKE TO PICC LINE NURSE YUMIKO, HE WILL NOT BE ABLE TO BE HERE UNTIL THE MORNING AROUND 6 AM.
--- NOTE | 2017-04-15 22:08 | NUR ---
SPOKE TO DR. GUAJARDO, INFORMED HIM THAT PICC LINE MAY NOT GET DONE UNTIL AM, AND DISCHARGE ORDER CURRENTLY IN PLACE, PER MD OK FOR PATIENT TO STAY AND DISCHARGE IN AM.
--- NOTE | 2017-04-15 22:20 | NUR ---
SPOKE TO MODESTO FROM CAN LINE EXAMINER, INFORMED HER THAT PATIENT PICC LINE WILL NOT BE INSERTED UNTIL LATER AND THAT PATIENT WILL BE STAYING OVERNIGHT AND THAT IT IS OK WITH MD. PER MODESTO IMPLEMENT PATIENT TEACHING FOR IV ANTIBIOTICS AND HOME HEALTH.
--- NOTE | 2017-04-15 22:45 | NUR ---
PICC LINE NURSE YUMIKO CALLED AND STATES HE WILL NOW BE HERE AT 2330. INFORMED CHARGE NURSE.
--- NOTE | 2017-04-15 23:36 | NUR ---
PIC LINE NURSE YUMIKO Herrera AT BEDSIDE TO PERFORM PROCEDURE TIME OUT PERFORMED. PATIENT IN STABLE CONDITION.
[2017-04-16] VITALS: BP 104/57
--- NOTE | 2017-04-16 00:10 | NUR ---
PICC LINE PROCEDURE FINISHED. CXR NEEDED PER PICC LINE PROTOCOL, PATIENT CONCERNED ABOUT X-RAYS AND AND WOULD LIKE TO SPEAK TO THE DOCTOR. PAGED DR. GUAJARDO, INFORMED MD. PER MD MINIMAL HARM WITH USE OF LEAD APRON. PATIENT SIGNED CONSENT AND VERBALIZED UNDERSTANDING.
[2017-04-16] MEDS: diphenhydrAMINE 50 MG/ML VIAL IVP PRN ×2 (01:47→08:03)
--- NOTE | 2017-04-16 01:47 | NUR ---
PT C/O NAUSEA, MEDICATIONS ADMINISTERED PER MD ORDER, TOLERATED WELL.
--- NOTE | 2017-04-16 04:38 | NUR ---
HEART TONES 143, TAKEN BY L&D NURSE MALIKA. PATIENT RESTING IN BED, NO S/S OF DISTRESS OR DISCOMFORT NOTED. CALL LIGHT WITHIN REACH.
--- NOTE | 2017-04-16 06:00 | NUR ---
PROVIDED EDUCATION SESSION FOR IV ANTIBIOTICS THROUGH PICC LINE, PATIENT ABLE TO RETURN DEMO AND VERBALIZED UNDERSTANDING. CALL LIGHT IN REACH, WILL CONTINUE TO MONITOR.
[2017-04-16] MEDS: MEROPENEM 1,000 MG in NACL 0.9% 100 ML IV SCH (06:05)
[2017-04-16 06:26] VITALS: BP 104/57
[2017-04-16] MEDS: HYDROcodone/APAP 5/325 MG 1 TAB TAB PO PRN (07:06)
--- NOTE | 2017-04-16 07:20 | NUR ---
RECEIVED PATIENT REPORT AT BEDSIDE. PATIENT AWAKE, ALERT AND ORIENTED. NO S/S OF DISTRESS NOTED. NO C/O PAIN AT THIS TIME. PATIENT C/O NAUSEA. WILL MEDICATE. PICC LINE NOTED TO THE LEFT UPPER ARM. BED LOWERED WITH CALL LIGHT WITHIN REACH. WILL CONTINUE TO MONITOR
--- NOTE | 2017-04-16 07:20 | NUR ---
ENDORSED PATIENT TO DAY RN FOR CONTINUITY OF CARE, PATIENT IS IN STABLE CONDITION.
[2017-04-16 08:00] VITALS: BP 100/62
[2017-04-16] MEDS ORDERED: LACTULOSE 20 GM/30 ML UDC PO SCH (08:13)
[2017-04-16] MEDS ORDERED: DOXY1TCP PO (08:29)
--- NOTE | 2017-04-16 08:30 | NUR ---
SPOKE WITH DR JON REGARDING PATIENT'S DISCHARGE ORDER. STATES THAT THEY ARE STILL WAITING FOR THE HOME HEALTH CONFIRMATION. ALSO NOTIFIED ABOUT THE PATIENT'S REQUEST TO HAVE PAIN MEDICATION IN HER DISCHARGE PRESCRIPTION. TO PUT ORDERS
[2017-04-16] MEDS: LACTOBACILLUS RHAMNOSUS GG 1 EACH CAP PO SCH (09:33)
[2017-04-16] MEDS: PYRIDOXINE 50 MG TAB PO SCH (09:33)
[2017-04-16] MEDS ORDERED: [UNRECOGNIZED DRUG - CODE] PO (10:52)
[2017-04-16] MEDS: NACL 0.9% 1,000 ML IV SCH (12:15)
--- NOTE | 2017-04-16 12:20 | NUR ---
PATIENT DISCHARGED TO HOME. DISCHARGE INSTRUCTIONS AND DISCHARGE PRESCRIPTIONS GIVEN. PATIENT VERBALIZED UNDERSTANDING. PER PT, ABX WAS DELIVERED TO HER HOUSE YESTERDAY AND SHE WILL GIVE THE HOME HEALTH NURSE A CALL WHEN SHE GETS HOME. PICC LINE LEFT INTACT. PATIENT GIVEN EDUCATION ON PICC LINE CARE AND WAS PROVIDED WITH SUPPLIES FOR DRESSING CHANGE. PATIENT VERBALIZED UNDERSTANDING. PERIPHERAL IV LINE TO THE RIGHT FOREARM DISCONTINUED. PATIENT LEFT WITH ALL HER BELONGINGS AND DISCHARGE PAPERS. PATIENT LEFT IN STABLE CONDITION.
[2017-04-16 15:20] LABS: CHLAMYDIA TRACHOMATIS AMP DNA Negative (Negative); HEMOGLOBIN A1C 4.8 % (4.8-5.6)
== END 2017-04-16 12:20 | disposition home or self-care (01) | DRG 566 ==
LOC: MED 17:12 → MTU 19:49
PROVIDERS: ADMIT Family Medicine; ATTEND Family Medicine
PROC: 02HV33Z Insertion of Infusion Device into Superior Vena Cava, Percutaneous Approach (ICD-10-PCS; principal; 2017-04-16)
DX: O23.02 Infections of kidney in pregnancy, second trimester (principal); N17.0 Acute kidney failure with tubular necrosis; E44.0 Moderate protein-calorie malnutrition; O26.832 Pregnancy related renal disease, second trimester; E83.42 Hypomagnesemia; E78.5 Hyperlipidemia, unspecified; G43.909 Migraine, unspecified, not intractable, without status migrainosus; O25.12 Malnutrition in pregnancy, second trimester; O26.892 Other specified pregnancy related conditions, second trimester; B96.20 Unspecified Escherichia coli [E. coli] as the cause of diseases classified elsewhere; Z16.12 Extended spectrum beta lactamase (ESBL) resistance; R74.0 Nonspecific elevation of levels of transaminase and lactic acid dehydrogenase [LDH]; Z3A.17 17 weeks gestation of pregnancy; Z68.22 Body mass index [BMI] 22.0-22.9, adult
CPT/HCPCS: 36415; 71010; 76805; 80048; 80053; 81001; 81025; 83036; 83690; 83735; 84100; 84436; 84439; 84443; 84479; 84702; 85025; 85610; 85730; 86900; 86901; 87040; 87081; 87086; 87186; 87491; 93005; 96365; 99285; C1751; J0696; J1200; J2185; J2270; J3475; J7030; J7060

== ENCOUNTER 2017-04-28 09:29 | Inpatient (IN) | payer MEDICAID ==
[~2017-04-28] VITALS: Ht 157.5 cm; Wt 55.3 kg
[~2017-04-28 09:29] MED LIST changes: +DOXY1TCP PO; +LACT10CA PO; +MERO1PDS2 IV; +[UNRECOGNIZED DRUG - CODE] PO
[2017-04-28] MEDS ORDERED: MULTIVITAMIN-12 10 ML, THIAMINE 100 MG, MAGNESIUM SULFATE 50% 2,000 MG, FOLIC ACID 5 MG... IV ONE ×5 (09:34)
[2017-04-28] MEDS ORDERED: NACL 0.9% 1,000 ML IV ONE (09:34)
--- NOTE | 2017-04-28 09:36 | NUR ---
PT WHEEL CHAIRED BY DIRECTOR OF EXTENSION WORK TO ER BED 06.
[2017-04-28 09:47] LABS: APPEARANCE,URINE CLEAR (CLEAR); BILIRUBIN,URINE NEGATIVE (NEGATIVE); BLOOD, URINE TRACE-I (NEGATIVE); COLOR,URINE YELLOW (YELLOW); LEUKOCYTE ESTERASE ,URINE NEGATIVE (NEGATIVE); NITRITE, URINE NEGATIVE (NEGATIVE); PROTEIN,URINE NEGATIVE (NEGATIVE); UGLUCOSE NEGATIVE (NEGATIVE); UROBILINOGEN,URINE 0.2 EU/dL (0.2 - 1)
[2017-04-28 09:49] VITALS: BP 94/70
--- NOTE | 2017-04-28 09:50 | NUR ---
PT DROPPED OFF HERE IN ER BY DUE TO ABDOMINAL CRAMPING;LT.UPPER ARM PICC LINE FOR IV ANTIBIOTIC, E. COLI URINE, LAST DAY TODAY PER PATIENT.18 WKS. GEST. .DENIES VAG. BLEED. HX: E.COLI URINE. SKIN IS PINK/WARM/DRY; AAOX4 WITH EVEN AND STEADY GAIT; LUNGS CLEAR BL; HR EVEN AND REGULAR; PT DENIES ANY FEVER, CP, SOB, OR COUGH AT THIS TIME; PATIENT STATES PAIN OF 7/10 AT THIS TIME;PATIENT POSITIONED FOR COMFORT; HOB ELEVATED; BEDRAILS UP X2; BED DOWN. ALL MONITORS IN PLACED.
[2017-04-28 09:54] LABS: BACTERIA,URINE 1+ /HPF (None Seen); RBC,URINE 0-5 (RARE) /HPF (0-5); WBC,URINE 0-5 (RARE) /HPF (0-5)
[2017-04-28 09:55] LABS: SQUAMOUS EPITHELIAL CELL,UR 50-80 /LPF (0-3 (FEW))
[2017-04-28 09:58] LABS: AMPHETAMINE, URINE NEG. ng/ml (NEG <=1000); BARBITURATE, URINE NEG. ng/ml (NEG <=200); BENZODIAZEPINE, URINE NEG. ng/mL (NEG <=200); CANNABINOID, URINE NEG. ng/mL (NEG <=50); COCAINE, URINE NEG. ng/mL (NEG <=300); OPIATE, URINE NEG. ng/mL (NEG <=2000); PHENCYCLIDINE SCREEN,URINE NEG. ng/mL (NEG <=25)
[2017-04-28 10:02] LABS: HEMATOCRIT 32.1 % (36-48); HEMOGLOBIN 10.6 g/dL (12.0-16.0); MEAN CORPUSCULAR HEMOGLOBIN 30 pg (27-31); MEAN CORPUSCULAR HGB CONC 33 g/dL (33-37); MEAN CORPUSCULAR VOLUME 89 fL (80-94); PLATELET COUNT (AUTO) 396 K/uL (140-450); RED BLOOD CELL COUNT(AUTO) 3.59 MIL/uL (4.20-5.40); RED CELL DISTRIBUTION WIDTH 14.4 % (11.6-13.7); WHITE BLOOD COUNT (AUTO) 6.2 K/uL (4.8-10.8)
[2017-04-28 10:09] LABS: ANION GAP 19.4 (8-16); CALCIUM 7.9 mg/dL (8.5-10.1); CARBON DIOXIDE 20.9 mmol/L (21-32); CREATININE 0.6 mg/dL (0.6-1.3); POTASSIUM 3.3 mmol/L (3.5-5.1)
[2017-04-28 10:14] LABS: BAND % (MANUAL) 1 % (0-8); EOSINOPHILS % (MANUAL) 1 % (0-4); LYMPHOCYTES % (MANUAL) 34 % (20-46); MONOCYTES % (MANUAL) 7 % (5-12); NEUTROPHILS % (MANUAL) 57 (43-65)
[2017-04-28 10:15] LABS: ALBUMIN 3.2 g/dL (3.4-5.0); BILIRUBIN,DIRECT 0.1 mg/dL (0.0-0.3); TOTAL BILIRUBIN 0.2 mg/dL (0.0-1.0); TOTAL PROTEIN, SERUM 7.8 g/dL (6.4-8.2)
[2017-04-28 10:17] LABS: PARTIAL THROMBOPLASTIN TIME 24.4 secs (22-35.6); PROTHROMBIN TIME 10.4 secs (10.8-13.4)
--- NOTE | 2017-04-28 11:10 | NUR ---
PT RESTING ON BED;NO ACUTE DISTRESS NOTED;WILL CONTINUE TO MONITOR PT.
[2017-04-28] MEDS ORDERED: DOCUSATE SODIUM 100 MG GELCAP PO PRN (11:25)
[2017-04-28] MEDS ORDERED: HYDROcodone/APAP 7.5/325 MG 1 TAB PO PRN (11:25)
[2017-04-28] MEDS ORDERED: ACETAMINOPHEN 325 MG TAB PO PRN (11:25)
[2017-04-28] MEDS ORDERED: diphenhydrAMINE 50 MG/ML VIAL IVP ONE (11:35)
--- NOTE | 2017-04-28 12:01 | NUR ---
PT SLEEPING;NO ACUTE DISTRESS NOTED;WILL CONTINUE TO MONITOR PT.
--- NOTE | 2017-04-28 12:13 | NUR ---
Patient will be admitted to care of DR JON. Admited to TELE. Will go to [facility] [address]. Belongings list completed. Report to VANDANA CRUZ.
--- NOTE | 2017-04-28 12:21 | NUR ---
RECEIVED REPORT FROM THE ER NURSE. WILL GET READY FOR TRANSFER.
--- NOTE | 2017-04-28 12:23 | NUR ---
FRONT ADMITTING CONFIRMED THE PT'S INSURANCE TO BE [employer] MED[employer] AND RESTICTIVE FOR OB COVERAGE.
--- NOTE | 2017-04-28 12:25 | NUR ---
PT ARRIVED ON UNIT WITH 2 ER NURSES. PT AMBULATED FROM THE GURNEY IN THE HALLWAY INTO THE ROOM. PT AMBULATES WELL. SKIN INTACT. ALERT AND ORIENTED X 4. C/O DIZZINESS. NOTED IV L AC 20G. BANANA BAG INFUSING. TELE MONITOR ADMINISTERED. MRSA SCREENING DONE. APPLIED BEIGE SOCK. ID BAND ADMINISTERED. NPO AT THIS TIME. ALL PERSONAL BELONGINGS IN THE DRAWER. SHE KEEPS HER EYES CLOSED. CLOSED THE BLINDS AND CURTAINS. NO COMPLAINTS AT THIS TIME. WILL AWAIT ORDERS.
[2017-04-28 12:45] VITALS: BP 97/60
[2017-04-28 13:40] LABS: CHOL/HDL RATIO 4.1 (1-4.5); FREE T4 (FREE THYROXINE) 0.82 ng/dL (0.76-1.46); MAGNESIUM 1.8 mg/dL (1.8-2.4); PHOSPHORUS 2.1 mg/dL (2.5-4.9); THYROID STIMULATING HORMONE 2.12 uIU/mL (0.34-3.76)
[2017-04-28] MEDS: NACL 0.9% 1,000 ML IV SCH ×3 (13:41→23:13)
--- NOTE | 2017-04-28 15:00 | NUR ---
FATHER AND SPOUSE CAME AND REQUESTED UPDATES ON PT'S CONDITION. UPDATED THEM ABOUT LABS. WAITING ON [facility] CONSULT. NO OTHER INFORMATION AVAILABLE. FATHER, KAYLYN JOHNSON WANTED TO LEAVE HIS NUMBER SO THAT WE CAN CALL HIM WITH UPDATES: [phone]
[2017-04-28 16:00] VITALS: BP 95/58
--- NOTE | 2017-04-28 17:20 | NUR ---
PT RESTING IN BED. STILL DIZZY AND NAUSEATED. WILL SEE WHAT IS ON HER MED LIST. REFUSED PAIN MED AT THIS TIME. SHE SAID SHE IS OK.
--- NOTE | 2017-04-28 19:15 | NUR ---
ENDORSED PT TO THE REFRIGERATION MECHANIC HELPER NURSE AT BEDSIDE FOR CONTINUITY OF CARE. PT IS IN STABLE CONDITION. WAITING ON RESIDENT TO CALL BACK OR PUT IN ORDERS FOR BENADRYL IVP FOR NAUSEA.
--- NOTE | 2017-04-28 19:20 | NUR ---
RECEIVED PT IN STABLE CONDITION FROM AM NURSE. AWAKE,ALERT ND ORIENTED X4 . ON TELE MONITOR. AMBULATORY. NO C/O ANY PAIN BUT JUST SOME NAUSEA. WILL FOLLOW UP THIS WITH MD. HAS IVF INFUSING WELL ON THE LT HAND #20. CLEAR AND PATENT. HAS PICC LINE ON LT UPPER ARM,HL. PLAN OF CARE DISCUSSED AND VERBALIZED UNDERSTANDING. BED ON LOW POSITION. CALL LIGHT PLACED WITHIN EASY REACH. WILL CONTINUE TO MONITOR.
[2017-04-28 19:55] VITALS: BP 103/60
[2017-04-28] MEDS ORDERED: NACL 0.9% 500 ML IV ONE (20:15)
--- NOTE | 2017-04-28 21:05 | NUR ---
PAGED DR. JON TO FOLLOW UP ORDER FOR PT C/O ITCHING,NAUSEA. CALLED BACK WITH ORDERS.
--- NOTE | 2017-04-28 21:50 | NUR ---
JOHN JON WAS PAGED. CALLED BACK. PT CAN HAVE SOME ICE CHIPS. NPO EXCEPT MEDS.
[2017-04-28] MEDS: diphenhydrAMINE 50 MG/ML VIAL IVP PRN (22:00)
--- NOTE | 2017-04-28 22:00 | NUR ---
C/O ITCHING ON SOME PARTS OF THE BODY. MEDICATED ORDERED. WILL CONTINUE TO MONITOR.
[2017-04-28 23:30] VITALS: BP 111/66
--- NOTE | 2017-04-29 00:30 | NUR ---
ASLEEP. NO S/S OFMANY DISCOMFORT NOTED. WILL CONTINUE TO MONITOR.
[2017-04-29 04:14] VITALS: BP 107/71
[2017-04-29] MEDS: diphenhydrAMINE 50 MG/ML VIAL IVP PRN ×4 (04:16→22:37)
--- NOTE | 2017-04-29 04:16 | NUR ---
VITAL SIGNS TAKEN. STABLE. BUT C/O ITCHING AGAIN. MEDICATED ORDERED. WILL CONTINUE TO MONITOR.
[2017-04-29 06:31] LABS: BASOPHILS # (AUTO) 0.1 K/uL (0.00-0.22); BASOPHILS % (AUTO) 0.6 % (0.0-2.0); EOSINOPHILS # (AUTO) 0.2 K/uL (0-0.4); EOSINOPHILS % (AUTO) 1.7 % (0.0-4.0); HEMATOCRIT 27.9 % (36-48); HEMOGLOBIN 9.4 g/dL (12.0-16.0); LYMPHOCYTES # (AUTO) 1.7 K/uL (2.5-16.5); LYMPHOCYTES % (AUTO) 17.5 % (20.5-51.1); MEAN CORPUSCULAR HEMOGLOBIN 30 pg (27-31); MEAN CORPUSCULAR HGB CONC 34 g/dL (33-37); MEAN CORPUSCULAR VOLUME 90 fL (80-94); MONOCYTES # (AUTO) 0.5 K/uL (0.8-1.0); MONOCYTES % (AUTO) 5.3 % (1.7-9.3); NEUTROPHILS # (AUTO) 7.4 K/uL (1.8-7.7); NEUTROPHILS % (AUTO) 74.9 % (42.2-75.2); PLATELET COUNT (AUTO) 298 K/uL (140-450); WHITE BLOOD COUNT (AUTO) 9.9 K/uL (4.8-10.8)
[2017-04-29 06:38] LABS: MAGNESIUM 1.6 mg/dL (1.8-2.4); PHOSPHORUS 2.1 mg/dL (2.5-4.9)
--- NOTE | 2017-04-29 06:45 | NUR ---
PT RESTING IN BED. NO S/S OF ANY DISCOMFORT NOTED.
[2017-04-29 07:06] LABS: ANION GAP 15.6 (8-16); CREATININE 0.4 mg/dL (0.6-1.3); POTASSIUM 3.6 mmol/L (3.5-5.1)
--- NOTE | 2017-04-29 07:13 | NUR ---
ENDORSED PT IN STABLE CONDITION TO AM NURSE FOR CONTINUITY OF CARE.
--- NOTE | 2017-04-29 07:14 | NUR ---
RECEIVED REPORT FROM THE RV TECHNICIAN NURSE AT BEDSIDE FOR CONTINUITY OF CARE. FINALLY RECEIVED ORDER FROM RESIDENT IV BENADRYL LAST NIGHT. PER RV TECHNICIAN, SHE HAD 2 DOSES ON HER SHIFT. PT IS AWAKE AND ALERT AND ORIENTED. SHE STATES, DIZZINESS IS BETTER, NAUSEA COMES AND GOES. BENADRYL HELPS BUT IT COMES BACK. SHE IS ANXIOUS TO SEE HER OB. PICC LINE IN HER L ARM STILL INTACT. IV L AC 20G NS AT 60ML INFUSING. NO COMPLAINTS AT THIS TIME. WILL CONTINUE TO MONITOR PT.
[2017-04-29 08:00] VITALS: BP 100/76
[2017-04-29] MEDS: NACL 0.9% 1,000 ML IV SCH (09:27)
--- NOTE | 2017-04-29 09:30 | NUR ---
ADMINISTERED BENADRYL FOR NAUSEA AND ITCHING. PT TOLERATED WELL. WILL CONTINUE TO MONITOR PT.
[2017-04-29 09:44] LABS: T4 (THYROXINE) 7.6 ug/dL (4.5-12.0)
[2017-04-29] MEDS ORDERED: MULTIVIT/MIN/CA/FE/FA 1 TAB PO SCH (10:00)
[2017-04-29] MEDS ORDERED: FOLIC ACID 1 MG TAB PO SCH (10:00)
[2017-04-29] MEDS: MORPHINE SULFATE 2 MG/ML SYR IVP PRN ×3 (10:19→20:43)
--- NOTE | 2017-04-29 10:20 | NUR ---
ADMINISTERED PAIN MED. PAIN LEVEL 7/10. PT TOLERATED WELL. WILL CONTINUE TO MONITOR PT.
--- NOTE | 2017-04-29 10:39 | NUR ---
PATIENT HAS BEEN SCREENED AND CATEGORIZED MODERATE NUTRITION RISK. PATIENT WILL BE SEEN WITHIN 3-5 DAYS OF ADMISSION. 04/30/17-05/02/[address]
--- NOTE | 2017-04-29 11:23 | NUR ---
PT SLEEPING. NO SIGNS OF DISTRESS OR DISCOMFORT. WILL CONTINUE TO MONITOR.
--- NOTE | 2017-04-29 12:10 | NUR ---
DR. OLSON CAME TO SEE PT. U/S CAME OUT FINE. PER DR OLSON, SHE IS CLEARED TO GO HOME.
[2017-04-29] MEDS: ONDANSETRON 4 MG/2 ML VIAL IM/IVP PRN (13:41)
--- NOTE | 2017-04-29 13:45 | NUR ---
ADMINISTERED ZOFRAN. PT WAS NAUSEATED BUT BENADRYL IS NOT DUE YET. FOR TIME BEING, PT REQUESTED IT.
--- NOTE | 2017-04-29 15:40 | NUR ---
ADMINISTERED PAIN MEDS AND BENADRYL. PT TOLERATED WELL. WILL CONTINUE TO MONITOR PT.
[2017-04-29 16:00] VITALS: BP 106/68
--- NOTE | 2017-04-29 17:20 | NUR ---
RESTING COMFORTABLY IN BED. NO COMPLAINTS AT THIS TIME. WILL CONTINUE TO MONITOR
--- NOTE | 2017-04-29 19:25 | NUR ---
ENDORSED PT TO THE P[employer]OT [employer]ANT OPERATOR HELPER NURSE AT BEDSIDE FOR CONTINUITY OF CARE. PT IS IN STABLE CONDITION.
--- NOTE | 2017-04-29 19:30 | NUR ---
RECEIVED PT IN STABLE CONDITION FROM AM NURSE. AWAKE, ALERT AND ORIENTED X4. MED SURG PT. WITH NO C/O DISCOMFORT AT THIS TIME. FAMILY AT BEDSIDE. EDUCATE THEM ABOUT ISOLATION PRECAUTIONS. NEED REINFORCEMENT. PT HAS IVF INFUSING WELL ON THE LT HAND #20. CLEAR AND PATENT. PICC LINE ON LT UPPER ARM ,HL. PLAN OF CARE DISCUSSED AND VERBALIZED UNDERSTANDING. BED ON LOW POSITION. CALL LIGHT PLACED WITHIN EASY REACH. WILL CONTINUE TO MONITOR.
[2017-04-29 20:00] VITALS: BP 98/62
--- NOTE | 2017-04-29 22:37 | NUR ---
C/O ITCHING. MEDICATED WITH BENADRYL IVP ORDERED. WILL CONTINUE TO MONITOR.
--- NOTE | 2017-04-29 23:25 | NUR ---
YELENA CHAVARRIA, NURSE CAME TO CHECK FHT. SHE SAID 144/MIN BELOW UMBILICUS.
[2017-04-30 00:30] VITALS: BP 106/64
--- NOTE | 2017-04-30 01:30 | NUR ---
PT RESTING IN BED. NO C/O ANY DISCOMFORT AT THIS TIME.
[2017-04-30] MEDS: NACL 0.9% 1,000 ML IV SCH ×2 (04:01→12:08)
[2017-04-30] MEDS: diphenhydrAMINE 50 MG/ML VIAL IVP PRN ×3 (04:08→16:09)
--- NOTE | 2017-04-30 04:08 | NUR ---
AWAKE AND C/O ITCHING. MEDICATED ORDERED . WILL CONTINUE TO MONITOR.
[2017-04-30 06:27] LABS: BASOPHILS # (AUTO) 0.1 K/uL (0.00-0.22); BASOPHILS % (AUTO) 1.1 % (0.0-2.0); EOSINOPHILS # (AUTO) 0.1 K/uL (0-0.4); HEMATOCRIT 25.2 % (36-48); HEMOGLOBIN 8.4 g/dL (12.0-16.0); LYMPHOCYTES # (AUTO) 1.5 K/uL (2.5-16.5); LYMPHOCYTES % (AUTO) 26.4 % (20.5-51.1); MEAN CORPUSCULAR HEMOGLOBIN 30 pg (27-31); MEAN CORPUSCULAR HGB CONC 34 g/dL (33-37); MEAN CORPUSCULAR VOLUME 91 fL (80-94); MONOCYTES # (AUTO) 0.4 K/uL (0.8-1.0); MONOCYTES % (AUTO) 7.8 % (1.7-9.3); NEUTROPHILS # (AUTO) 3.6 K/uL (1.8-7.7); NEUTROPHILS % (AUTO) 62.7 % (42.2-75.2); PLATELET COUNT (AUTO) 224 K/uL (140-450); RED BLOOD CELL COUNT(AUTO) 2.78 MIL/uL (4.20-5.40); WHITE BLOOD COUNT (AUTO) 5.7 K/uL (4.8-10.8)
--- NOTE | 2017-04-30 06:30 | NUR ---
RESTING IN BED. NO C/O OF ANY PAIN A THIS TIME.
[2017-04-30 07:13] LABS: ANION GAP 12.5 (8-16); CALCIUM 7.4 mg/dL (8.5-10.1); CREATININE 0.5 mg/dL (0.6-1.3); POTASSIUM 3.5 mmol/L (3.5-5.1)
[2017-04-30 07:14] LABS: MAGNESIUM 1.5 mg/dL (1.8-2.4); PHOSPHORUS 2.5 mg/dL (2.5-4.9)
--- NOTE | 2017-04-30 07:15 | NUR ---
ENDORSED PT IN STABLE CONDITION TO AM NURSE FOR CONTINUITY OF CARE.
--- NOTE | 2017-04-30 07:25 | NUR ---
RECEIVED PT IN BED. AWAKE. ALERT ORIENTED X4. NO SOB NOTED. DENIES ANY PAIN OR DISCOMFORT AT THIS TIME. POSITIVE BOWEL SOUNDS NOTED ON FOUR QUADRANTS. PT AMBULATORY. SAFETY PRECAUTION IN PLACE. CALL LIGHT WITHIN REACH.
[2017-04-30 08:00] VITALS: BP 98/60
[2017-04-30 08:25] LABS: HEMOGLOBIN A1C 4.7 % (4.8-5.6)
[2017-04-30] MEDS ORDERED: FOLIC ACID 1 MG TAB PO SCH (09:00)
[2017-04-30] MEDS ORDERED: MULTIVIT/MIN/CA/FE/FA 1 TAB PO SCH (09:00)
--- NOTE | 2017-04-30 10:00 | NUR ---
PT IN BED. AWAKE, WATCHING TV. VERBALIZED SHE CONSUMED HER DIET WITHOUT VOMITING.
[2017-04-30] MEDS: ONDANSETRON 4 MG/2 ML VIAL IM/IVP PRN (10:37)
[2017-04-30] MEDS ORDERED: MAG SULF 2000 MG/WATER PREMIX 50 ML IV SCH (13:06)
[2017-04-30 13:26] VITALS: BP 112/70
[2017-04-30] MEDS: MORPHINE SULFATE 2 MG/ML SYR IVP PRN (13:32)
[2017-04-30 16:00] VITALS: BP 110/70
--- NOTE | 2017-04-30 17:33 | NUR ---
PT DISCHARGE INSTRUCTIONS AND TEACHINGS GIVEN TO PT. PT VERBALIZED UNDERSTANDING. SIGNED DISCHARGE PAPERS. IV CANNULA REMOVED AND INTACT. PICC LINE REMOVED, AND INTACT. NO ACTIVE BLEEDING NOTED. NAME ARM BAND REMOVED. JUST WAITING FOR PT'S BOYFRIEND TO PICK HER UP. NO SOB. DENIES ANY PAIN OR DIOSCOMFORT AT THIS TIME. PT ON STABLE CONDITION.
--- NOTE | 2017-04-30 19:19 | NUR ---
BOYFRIEND CAME TO DEPARTMENT [employer] OR [employer] PT. WHEELED PT OUT OF THE HOSPITAL TO THE HOSPITAL PARKING LOT PER CELL COVERER ON STABLE CONDITION, TO THEIR PRIVATE OWNED VEHICLE ON STABLE CONDITION. NO SOB NOTED. PT DENIES ANY PAIN OR DISCOMFORT AT THIS TIME.
== END 2017-04-30 19:15 | disposition home or self-care (01) | DRG 566 ==
LOC: MED 09:29 → MMU 11:22 → MTU 04-30 01:02
PROVIDERS: ADMIT Family Medicine; ATTEND Family Medicine
DX: O99.312 Alcohol use complicating pregnancy, second trimester (principal); G92 Toxic encephalopathy; E44.0 Moderate protein-calorie malnutrition; E83.39 Other disorders of phosphorus metabolism; E83.42 Hypomagnesemia; F10.129 Alcohol abuse with intoxication, unspecified; E83.51 Hypocalcemia; Y90.8 Blood alcohol level of 240 mg/100 ml or more; E87.6 Hypokalemia; R10.2 Pelvic and perineal pain; E78.5 Hyperlipidemia, unspecified; O26.892 Other specified pregnancy related conditions, second trimester; O99.012 Anemia complicating pregnancy, second trimester; O25.12 Malnutrition in pregnancy, second trimester; D64.9 Anemia, unspecified; Z79.899 Other long term (current) drug therapy; Z71.41 Alcohol abuse counseling and surveillance of alcoholic; Z87.442 Personal history of urinary calculi; Z87.440 Personal history of urinary (tract) infections; Z3A.18 18 weeks gestation of pregnancy; Z68.22 Body mass index [BMI] 22.0-22.9, adult; O99.282 Endocrine, nutritional and metabolic diseases complicating pregnancy, second trimester; O99.352 Diseases of the nervous system complicating pregnancy, second trimester; Z83.3 Family history of diabetes mellitus; Z84.1 Family history of disorders of kidney and ureter; Z82.49 Family history of ischemic heart disease and other diseases of the circulatory system; O99.342 Other mental disorders complicating pregnancy, second trimester; F41.8 Other specified anxiety disorders
CPT/HCPCS: 36415; 76805; 80048; 80053; 80076; 80305; 81001; 82150; 83036; 83690; 83735; 83880; 84100; 84436; 84439; 84443; 84479; 84702; 85025; 85610; 85730; 87081; 87086; 93005; 96361; 96374; 96375; 99285; A9153; G0482; J1200; J2270; J2405; J3411; J3475; J3490; J7030; Q0092

== ENCOUNTER 2018-04-25 18:53 | Emergency (ER) | payer MEDICAID ==
[~2018-04-25] VITALS: Ht 157.5 cm; Wt 49.9 kg
[~2018-04-25 18:53] MED LIST changes: +FERR-212 PO; -IRON65TA3 PO; -LACT10CA PO; -MERO1PDS2 IV
[2018-04-25 19:06] VITALS: BP 115/82
--- NOTE | 2018-04-25 19:09 | NUR ---
PATIENT PRESENTS TO ED WITH LEFT SIDE BODY NUMBNESS AND GENERALIZED SHAKING X1 DAY. NO FACIAL DROOP NOTED. EYES PERRLA, SPEACH CLEAR, BILATER GENERALIZED WEAKNESS. PT STATES SHE WAS DISCHARGED FROM HOSPTIAL YESTER AFTER ACTIVE SEIZUERS. PT STATES FEELING NERVOUS GIVEN RECENT EVENTS AND HOSPITALIZATION AND WISHES TO SEE ER PHYSICIAN. DENIES N/V/D; SKIN IS PINK/WARM/DRY; AAOX4 WITH SLOW BUT EVEN AND STEADY GAIT; LUNGS CLEAR BL; HR EVEN AND REGULAR; PT DENIES ANY FEVER, CP, SOB, OR COUGH AT THIS TIME; PATIENT STATES PAIN OF 0/10 AT THIS TIME; VSS; PATIENT POSITIONED FOR COMFORT; HOB ELEVATED; BEDRAILS UP X2; BED DOWN. ER MD MADE AWARE OF PT STATUS. CONTINUE TO MONITOR.
--- NOTE | 2018-04-25 19:10 | NUR ---
patient ambulated to rm 8 with steady gait. gave report to Pablo ROSS.
--- NOTE | 2018-04-25 20:55 | NUR ---
Dr. Liz evaluating patient at bedside.
[2018-04-25] MEDS ORDERED: NACL 0.9% 1,000 ML IV SCH (20:59)
[2018-04-25] MEDS ORDERED: METOCLOPRAMIDE 10 MG/2 ML INJ VIAL IVP ONE (21:00)
[2018-04-25] MEDS ORDERED: diphenhydrAMINE 50 MG/ML VIAL IVP ONE (21:00)
[2018-04-25] MEDS ORDERED: cefTRIAXone 1,000 MG in DEXT 5% MINI-BAG PLUS 50 ML IV ONE (21:00)
[2018-04-25] MEDS ORDERED: cefTRIAXone 1,000 MG VIAL ONE (21:09)
[2018-04-25 21:35] LABS: BASOPHILS # (AUTO) 0.1 K/uL (0.00-0.22); BASOPHILS % (AUTO) 1.1 % (0.0-2.0); EOSINOPHILS # (AUTO) 0.1 K/uL (0-0.4); EOSINOPHILS % (AUTO) 1.9 % (0.0-4.0); HEMATOCRIT 31.5 % (36-48); HEMOGLOBIN 10.3 g/dL (12.0-16.0); LYMPHOCYTES # (AUTO) 1.5 K/uL (2.5-16.5); LYMPHOCYTES % (AUTO) 24.8 % (20.5-51.1); MEAN CORPUSCULAR HEMOGLOBIN 30 pg (27-31); MEAN CORPUSCULAR HGB CONC 33 g/dL (33-37); MEAN CORPUSCULAR VOLUME 91.5 fL (80-94); MONOCYTES # (AUTO) 0.7 K/uL (0.8-1.0); MONOCYTES % (AUTO) 11.9 % (1.7-9.3); NEUTROPHILS # (AUTO) 3.6 K/uL (1.8-7.7); NEUTROPHILS % (AUTO) 60.3 % (42.2-75.2); PLATELET COUNT (AUTO) 225 K/uL (140-450); RED BLOOD CELL COUNT(AUTO) 3.44 MIL/uL (4.20-5.40); RED CELL DISTRIBUTION WIDTH 19.3 % (11.6-13.7)
[2018-04-25 22:02] LABS: ANION GAP 12.8 (8-16); CARBON DIOXIDE 25.8 mmol/L (21-32); CREATININE 0.6 mg/dL (0.6-1.3); POTASSIUM 3.6 mmol/L (3.5-5.1)
[2018-04-25 22:21] LABS: TOTAL BILIRUBIN 0.4 mg/dL (0.0-1.0)
[2018-04-25 22:22] LABS: ALBUMIN 3.8 g/dL (3.4-5.0)
[2018-04-26 00:36] VITALS: BP 112/83
--- NOTE | 2018-04-26 00:36 | NUR ---
Patient discharged with v/s stable. Written and verbal after care instructions given and explained. Patient alert, oriented and verbalized understanding of instructions. Ambulatory with steady gait. All questions addressed prior to discharge. ID band removed. Patient advised to follow up with PMD. Rx of CIPRO AND ACETAMINOPHEN given. Patient educated on indication of medication including possible reaction and side effects. Opportunity to ask questions provided and answered. IV removed, catheter intact and site benign. Applied folded 4x4 gauze and tape to stop bleeding.
== END 2018-04-26 00:36 | disposition home or self-care (01) ==
LOC: MED 18:53
DX: N12 Tubulo-interstitial nephritis, not specified as acute or chronic (principal); R20.2 Paresthesia of skin; R51 Headache; Z87.442 Personal history of urinary calculi; Z79.899 Other long term (current) drug therapy
CPT/HCPCS: 36415; 74176; 80053; 81002; 81025; 82948; 83690; 85025; 96365; 96375; 99285; J0696; J1200; J2765; J7030

== ENCOUNTER 2019-12-05 21:43 | Emergency (ER) | payer SELFPAY ==
[~2019-12-05] VITALS: Ht 157.5 cm; Wt 54.4 kg
[2019-12-05 21:45] VITALS: BP 122/87
--- NOTE | 2019-12-05 21:47 | NUR ---
TO LOBBY A/W BED AMBULATORY
--- NOTE | 2019-12-05 22:35 | NUR ---
PT AMBULATED TO BED WITH FAMILY
--- NOTE | 2019-12-05 23:00 | NUR ---
39/F PRESENTS TO ED WITH FAMILY, C/O DIFFUSE RASH ON BLE, NOTICED THIS AFTERNOON, REPORTS TENDERNESS TO TOUCH, +CMS. PT ALSO C/O SORE THROAT AND BL EAR PAIN X2 WEEKS, DENIES COUGH. REPORTS FEVER (100.6 AT HOME), AFEBRILE AT THIS TIME. PT AWAKE AND ALERT, SKIN NORMAL COLOR WARM AND DRY, RR EVEN AND UNLABORED. HX INSOMNIA. RX SEROQUEL (RAN OUT). COMPLETED RX AMOXICILLIN. OTC NAPROXEN WITH LITTLE RELIEF.
[2019-12-05] MEDS ORDERED: diphenhydrAMINE 50 MG CAP PO ONE (23:40)
[2019-12-05] MEDS ORDERED: KETOROLAC 60 MG/2 ML VIAL IM ONE (23:40)
--- NOTE | 2019-12-05 23:45 | NUR ---
LAB AT BEDSIDE.
[2019-12-05 23:55] LABS: BASOPHILS # (AUTO) 0.1 K/uL (0.00-0.22); EOSINOPHILS % (AUTO) 0.3 % (0.0-4.0); HEMATOCRIT 35.4 % (36-48); HEMOGLOBIN 11.6 g/dL (12.0-16.0); LYMPHOCYTES # (AUTO) 1.4 K/uL (2.5-16.5); LYMPHOCYTES % (AUTO) 24.6 % (20.5-51.1); MEAN CORPUSCULAR HEMOGLOBIN 29 pg (27-31); MEAN CORPUSCULAR HGB CONC 33 g/dL (33-37); MEAN CORPUSCULAR VOLUME 87.8 fL (80-94); MONOCYTES # (AUTO) 0.5 K/uL (0.8-1.0); MONOCYTES % (AUTO) 9.5 % (1.7-9.3); NEUTROPHILS # (AUTO) 3.6 K/uL (1.8-7.7); NEUTROPHILS % (AUTO) 64.6 % (42.2-75.2); PLATELET COUNT (AUTO) 548 K/uL (140-450); RED BLOOD CELL COUNT(AUTO) 4.03 MIL/uL (4.20-5.40); RED CELL DISTRIBUTION WIDTH 18.3 % (11.6-13.7); WHITE BLOOD COUNT (AUTO) 5.6 K/uL (4.8-10.8)
--- NOTE | 2019-12-05 23:57 | NUR ---
PT HAD C/O 7/10 THOMAS. AND INCREASED ITCHING OF BOTH LE. DR. SALCIDO MADE AWARE AND PO 50MG BENADRYL GIVEN. IM TORADOL 60MG GIVEN. PT TOLERATED WELL.
[2019-12-06] MEDS ORDERED: methylPREDNISolone SS 125 MG/2 ML VIAL IM ONE (00:05)
[2019-12-06 00:10] LABS: PROTHROMBIN TIME 10.7 secs (10.8-13.4)
[2019-12-06 00:11] LABS: ALBUMIN 3.4 g/dL (3.4-5.0); ANION GAP 12.7 (8-16); CARBON DIOXIDE 26.8 mmol/L (21-32); CREATININE 0.6 mg/dL (0.6-1.3); POTASSIUM 3.5 mmol/L (3.5-5.1); TOTAL BILIRUBIN 0.2 mg/dL (0.0-1.0)
--- NOTE | 2019-12-06 00:54 | NUR ---
XRAY AT BEDSIDE.
--- NOTE | 2019-12-06 02:31 | NUR ---
PT RESTING IN BED EYES OPEN. RESPIRATIONS ARE EVEN AND UNLABORED. SKIN IS WARM AND DRY TO TOUCH. PT CONTINUES TO HAVE C/O ITCHING IN BOTH LE. DR. SALCIDO MADE AWARE.
[2019-12-06 03:05] VITALS: BP 116/89
--- NOTE | 2019-12-06 03:05 | NUR ---
Patient discharged with v/s stable. Written and verbal after care instructions given and explained. Patient alert, oriented and verbalized understanding of instructions. Ambulatory with steady gait. All questions addressed prior to discharge. ID band removed. Patient advised to follow up with PMD. Rx of PREDNISONE, BENADRYL, HYDROCORTISONE given. Patient educated on indication of medication including possible reaction and side effects. Opportunity to ask questions provided and answered.
== END 2019-12-06 03:05 | disposition home or self-care (01) ==
LOC: MED 21:43
DX: R21 Rash and other nonspecific skin eruption (principal); R03.0 Elevated blood-pressure reading, without diagnosis of hypertension; Z87.442 Personal history of urinary calculi; Z79.899 Other long term (current) drug therapy
CPT/HCPCS: 36415; 73590; 80053; 85025; 85610; 85730; 96372; 99284; J1885; J2930; Q0092; Q0163

== ENCOUNTER 2021-10-20 20:00 | Emergency (ER) | payer SELFPAY ==
[~2021-10-20] VITALS: Ht 157.5 cm; Wt 54.4 kg
[2021-10-20 20:45] VITALS: BP 106/59
[2021-10-20] MEDS ORDERED: KETOROLAC 30 MG/ML VIAL IM ONE (22:20)
[2021-10-20] MEDS ORDERED: NAPR-54 PO (23:44)
[2021-10-21] MEDS ORDERED: diphenhydrAMINE 50 MG/ML VIAL IM ONE (00:35)
[2021-10-21] MEDS ORDERED: HYDROcodone/APAP 10/325 MG 1 TAB TAB PO STA (01:35)
--- NOTE | 2021-10-21 02:16 | NUR ---
PT TAKEN TO ER BED 2 VIA WHEELCHAIR
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
--- NOTE | 2021-10-21 02:37 | NUR ---
PT LYING IN BED WITH EYES OPEN. EQUAL RISE AND FALL OF CHEST. VS ARE STABLE. DENIES ANY NEEDS AT THIS TIME. RN UPDATED PT ON PLAN OF CARE.
[2021-10-21] MEDS ORDERED: CEPH-588 PO (04:46)
[2021-10-21 05:15] VITALS: BP 88/47
--- NOTE | 2021-10-21 05:15 | NUR ---
Patient discharged with v/s stable. Written and verbal after care instructions given and explained. Patient alert, oriented and verbalized understanding of instructions. Wheel Chair Assisted with steady gait. All questions addressed prior to discharge. ID band removed. Patient advised to follow up with PMD. Rx of KEFLEX, NAPROSYN given. Patient educated on indication of medication including possible reaction and side effects. Opportunity to ask questions provided and answered.
== END 2021-10-21 05:15 | disposition home or self-care (01) ==
LOC: MED 20:00
DX: S93.401A Sprain of unspecified ligament of right ankle, initial encounter (principal); S93.601A Unspecified sprain of right foot, initial encounter; N12 Tubulo-interstitial nephritis, not specified as acute or chronic; W19.XXXA Unspecified fall, initial encounter; Y93.89 Activity, other specified; Y92.89 Other specified places as the place of occurrence of the external cause; Y99.8 Other external cause status
CPT/HCPCS: 71045; 73610; 73630; 74176; 81002; 81025; 96372; 99285; J1200; J1885

== ENCOUNTER 2021-10-25 14:02 | Emergency (ER) | payer SELFPAY ==
[~2021-10-25] VITALS: Ht 157.5 cm; Wt 54.4 kg
[~2021-10-25 14:02] MED LIST changes: +CEPH-588 PO; +NAPR-54 PO
[2021-10-25 14:43] VITALS: BP 113/73
[2021-10-25] MEDS ORDERED: diphenhydrAMINE 50 MG/ML VIAL IM ONE (15:25)
[2021-10-25] MEDS ORDERED: DIPH25TA53 PO (15:27)
[2021-10-25] MEDS ORDERED: TRAM50TA3 PO (15:28)
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
--- NOTE | 2021-10-25 15:45 | NUR ---
EMT AT [facility] FOR SPLINT APPLICATION AND CRUTCH TEACHING.
--- NOTE | 2021-10-25 15:48 | NUR ---
pt right leg was placed in an ankle stir-up. ERMD notified and checked ankle after splint was placed.
--- NOTE | 2021-10-25 15:51 | NUR ---
Patient discharged with v/s stable. Written and verbal after care instructions given and explained. Patient alert, oriented and verbalized understanding of instructions. Ambulatory with crutches with steady gait. All questions addressed prior to discharge. ID band removed. Patient advised to follow up with PMD. Rx of Tramadol, Benadryl given. Patient educated on indication of medication including possible reaction and side effects. Opportunity to ask questions provided and answered.
== END 2021-10-25 15:51 | disposition home or self-care (01) ==
LOC: MED 14:02
DX: S93.401A Sprain of unspecified ligament of right ankle, initial encounter (principal); L23.9 Allergic contact dermatitis, unspecified cause; Z87.442 Personal history of urinary calculi; X50.0XXA Overexertion from strenuous movement or load, initial encounter; Y93.89 Activity, other specified; Y92.89 Other specified places as the place of occurrence of the external cause; Y99.8 Other external cause status
CPT/HCPCS: 29515; 96372; 99283; J1200

== ENCOUNTER 2022-04-23 19:18 | Emergency (ER) | payer OTHER ==
[~2022-04-23] VITALS: Ht 157.5 cm; Wt 59.4 kg
[~2022-04-23 19:18] MED LIST changes: +DIPH25TA53 PO; +TRAM50TA3 PO
[2022-04-23 19:55] VITALS: BP 115/74
--- NOTE | 2022-04-23 21:15 | NUR ---
Dr. Simpson examining patient.
--- NOTE | 2022-04-23 21:27 | NUR ---
PT TAKEN TO CT
--- NOTE | 2022-04-23 21:40 | NUR ---
PT RETURN FROM CT
[2022-04-23] MEDS: KETOROLAC 60 MG/2 ML VIAL IM ONE (22:02)
--- NOTE | 2022-04-23 22:23 | NUR ---
PT MOVED TO ER BED 1
[2022-04-23 22:48] LABS: BASOPHILS # (AUTO) 0.1 K/uL (0.00-0.22); BASOPHILS % (AUTO) 2.5 % (0.0-2.0); EOSINOPHILS # (AUTO) 0.1 K/uL (0-0.4); EOSINOPHILS % (AUTO) 2.1 % (0.0-4.0); HEMATOCRIT 33.8 % (36-48); HEMOGLOBIN 11.1 g/dL (12.0-16.0); LYMPHOCYTES # (AUTO) 1.1 K/uL (2.5-16.5); LYMPHOCYTES % (AUTO) 32.9 % (20.5-51.1); MEAN CORPUSCULAR HEMOGLOBIN 29 pg (27-31); MEAN CORPUSCULAR HGB CONC 33 g/dL (33-37); MEAN CORPUSCULAR VOLUME 89.5 fL (80-94); MONOCYTES # (AUTO) 0.7 K/uL (0.8-1.0); MONOCYTES % (AUTO) 21.2 % (1.7-9.3); NEUTROPHILS # (AUTO) 1.4 K/uL (1.8-7.7); NEUTROPHILS % (AUTO) 41.3 % (42.2-75.2); PLATELET COUNT (AUTO) 240 K/uL (140-450); RED BLOOD CELL COUNT(AUTO) 3.78 MIL/uL (4.20-5.40); RED CELL DISTRIBUTION WIDTH 19.7 % (11.6-13.7); WHITE BLOOD COUNT (AUTO) 3.3 K/uL (4.8-10.8)
--- NOTE | 2022-04-23 22:57 | NUR ---
URINE COLLECTED AND GAVE TO IMAGING ADMINISTRATOR RED
--- NOTE | 2022-04-23 23:00 | NUR ---
41 Y.O. F C/O PULLING BOXES AT WORK AND STRAINED SHOULDER. "FELT A PINCH." SINCE March. TOOK IBUPROFEN FOR PAIN 07/14. +SWELLING, +CMS, LIMITED RANGE OF MOTION DUE TO PAIN. RAD TO NECK AND WRIST. PT ALSO COMPLAINS OF CHILLS, BEING COLD, AND A COUGH BUT TEST NEG FOR COVID AT HOME. NO SOB NOR CHEST PAIN. HAD N/V X3DAYS. A&OX4, SKIN INTACT, STEADY GAIT, GI NORMAL, AND PAIN 07/14. HX: HERNIA NKA MED: ALLERGY MEDICATION
[2022-04-23 23:03] LABS: ALBUMIN 3.8 g/dL (3.4-5.0); ANION GAP 16.5 (8-16); CARBON DIOXIDE 21.4 mmol/L (21-32); CREATININE 0.6 mg/dL (0.6-1.3); POTASSIUM 3.9 mmol/L (3.5-5.1); TOTAL BILIRUBIN 0.1 mg/dL (0.0-1.0)
[2022-04-23 23:04] LABS: APPEARANCE,URINE CLEAR (CLEAR); BILIRUBIN,URINE NEGATIVE (NEGATIVE); BLOOD, URINE 3+ (NEGATIVE); COLOR,URINE YELLOW (YELLOW); LEUKOCYTE ESTERASE ,URINE 1+ (NEGATIVE); NITRITE, URINE NEGATIVE (NEGATIVE); UGLUCOSE NEGATIVE (NEGATIVE)
[2022-04-23 23:15] LABS: RBC,URINE 20-50 /HPF (0-5)
[2022-04-23] MEDS ORDERED: NITR100C7 PO (23:31)
[2022-04-23] MEDS ORDERED: NAPR-54 PO (23:31)
[2022-04-23] MEDS ORDERED: cefTRIAXone 1,000 MG VIAL ONE (23:38)
[2022-04-24] MEDS: ONDANSETRON 4 MG/2 ML VIAL IVP ONE (00:23)
[2022-04-24] MEDS: MORPHINE SULFATE 4 MG/ML SYR IVP ONE (00:23)
[2022-04-24 01:30] VITALS: BP 114/76
--- NOTE | 2022-04-24 02:09 | NUR ---
Patient discharged with v/s stable. Written and verbal after care instructions given and explained. Patient alert, oriented and verbalized understanding of instructions. Ambulatory with steady gait. All questions addressed prior to discharge. ID band removed. Patient advised to follow up with PMD. Rx of NAPROXEN AND MACROBID 100MG given. Patient educated on indication of medication including possible reaction and side effects. Opportunity to ask questions provided and answered.
== END 2022-04-24 01:15 | disposition home or self-care (01) ==
LOC: MED 19:18
DX: N12 Tubulo-interstitial nephritis, not specified as acute or chronic (principal); D17.21 Benign lipomatous neoplasm of skin and subcutaneous tissue of right arm; Z87.442 Personal history of urinary calculi
CPT/HCPCS: 36415; 73200; 80053; 81001; 85025; 87040; 87086; 96365; 96372; 96375; 99285; J0696; J1885; J2270; J2405

== ENCOUNTER 2022-07-31 12:24 | Emergency (ER) | payer SELFPAY ==
[~2022-07-31] VITALS: Ht 157.5 cm; Wt 61.2 kg
[~2022-07-31 12:24] MED LIST changes: +NITR100C7 PO
[2022-07-31 12:35] VITALS: BP 109/77
--- NOTE | 2022-07-31 12:50 | NUR ---
SEEN BY ZULEYMA NG
[2022-07-31] MEDS ORDERED: KETOROLAC 30 MG/ML VIAL IM ONE (12:55)
[2022-07-31] MEDS ORDERED: ONDANSETRON 4 MG ODT PO ONE (12:55)
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
[2022-07-31] MEDS ORDERED: HYDROcodone/APAP 5/325 MG 1 TAB TAB PO ONE (14:20)
[2022-07-31 15:47] VITALS: BP 111/77
[2022-07-31] MEDS ORDERED: ONDA-188 PO (15:54)
[2022-07-31] MEDS ORDERED: IBUP-2213 PO (15:54)
[2022-07-31] MEDS ORDERED: ACET-8386 PO (15:54)
[2022-07-31] MEDS ORDERED: METOCLOPRAMIDE 10 MG/2 ML INJ VIAL IM ONE (16:20)
--- NOTE | 2022-07-31 16:51 | NUR ---
Patient discharged with v/s stable. Written and verbal after care instructions FORRIB CONTUSION given and explained. Patient alert, oriented and verbalized understanding of instructions. Ambulatory with steady gait. All questions addressed prior to discharge. ID band removed. Patient advised to follow up with PMD. Rx of HYDROCODONE, ZOFRAN AND IBUPROFEN given. Opportunity to ask questions provided and answered.
--- NOTE | 2022-07-31 17:23 | NUR ---
The patient's care was reviewed and supervised by Audra Rutherford RN.
== END 2022-07-31 16:51 | disposition home or self-care (01) ==
LOC: MED 12:24
DX: S20.212A Contusion of left front wall of thorax, initial encounter (principal); G89.29 Other chronic pain; M25.511 Pain in right shoulder; Z86.69 Personal history of other diseases of the nervous system and sense organs; Z87.448 Personal history of other diseases of urinary system; Z79.1 Long term (current) use of non-steroidal anti-inflammatories (NSAID); Z79.899 Other long term (current) drug therapy; Z79.891 Long term (current) use of opiate analgesic; Z79.2 Long term (current) use of antibiotics; W22.8XXA Striking against or struck by other objects, initial encounter; Y92.89 Other specified places as the place of occurrence of the external cause; Y93.89 Activity, other specified; Y99.8 Other external cause status
CPT/HCPCS: 71101; 81025; 96372; 99284; J1885; J2765; Q0162; Q0163

== ENCOUNTER 2024-07-01 17:29 | Emergency (ER) | payer SELFPAY ==
[~2024-07-01] VITALS: Ht 157.5 cm; Wt 63.5 kg
[~2024-07-01 17:29] MED LIST changes: +ACET-8905 PO; +IBUP-2213 PO; +NAPR-337 PO; -NAPR-54 PO; +ONDA-188 PO
[2024-07-01 17:42] VITALS: BP 107/71; PULSE 94; RESP 18; TEMP 98.2; O2SAT 99
[2024-07-01] MEDS ORDERED: NAPR-337 PO (18:15)
[2024-07-01] MEDS ORDERED: TRAM-748 PO (18:15)
[2024-07-01] MEDS ORDERED: LORA10TA19 PO (18:18)
[2024-07-01] MEDS: LORATADINE 10 MG TAB PO ONE (18:36)
[2024-07-01] MEDS: KETOROLAC 30 MG/ML VIAL IM ONE (18:37)
== END 2024-07-01 18:42 | disposition home or self-care (01) ==
LOC: MED 17:29
DX: S80.01XA Contusion of right knee, initial encounter (principal); N20.0 Calculus of kidney; Z86.69 Personal history of other diseases of the nervous system and sense organs; Z79.1 Long term (current) use of non-steroidal anti-inflammatories (NSAID); Z79.899 Other long term (current) drug therapy; W01.0XXA Fall on same level from slipping, tripping and stumbling without subsequent striking against object, initial encounter; Y93.89 Activity, other specified; Y92.89 Other specified places as the place of occurrence of the external cause; Y99.8 Other external cause status
CPT/HCPCS: 81025; 96372; 99283; J1885